=== PATIENT | male | born 1975 | race Caucasian/White ===

== ENCOUNTER 2016-04-25 08:08 | Emergency (ER) | payer SELFPAY ==
[2016-04-25] MEDS ORDERED: ONDANSETRON 4 MG TAB.RAPDIS PO ONE (08:35)
--- NOTE | 2016-04-25 09:21 | ER Document Report ---
[id number] 4d VOMITING,DIARRHEA,BODY PAIN Mode of Arrival: Ambulatory Information source: Patient Notes: 40-year-old male presents with complaints of nausea vomiting diarrhea and back pain. Patient notes 3 children and all had similar viral syndrome, he states he vomited sometimes his back hurts. Patient denies any fevers or chills. TRAVEL OUTSIDE OF THE [place] IN LAST 30 DAYS: No - HPI Onset: Other - 2 day duration Onset/Duration: Persistent Quality of pain: Sharp Severity: Mild Pain Level: 1 Associated symptoms: Body/muscle aches, Diarrhea, Nausea, Vomiting Exacerbated by: Movement Relieved by: Denies Similar symptoms previously: No Recently seen / treated by doctor: No - Related Data Allergies/Adverse Reactions: No Known Allergies Allergy (Verified 04/25/16 08:11) Past Medical History - Social History Smoking Status: Current Every Day Smoker Cigarette use (# per day): Yes Chew tobacco use (# tins/day): No Smoking Education Provided: Yes - Patient counselled regarding cessation for 4 minutes Frequency of alcohol use: None Drug Abuse: None Family History: Arthritis Patient has suicidal ideation: No Patient has homicidal ideation: No Neurological Medical History: Reports: Hx Migraine Renal/ Medical History: Denies: Hx Peritoneal Dialysis GI Medical History: Reports: Hx Gastritis, Hx Gastroesophageal Reflux Disease, Hx Ulcer - Endoscopies, no symptoms of late, Hx Endoscopy Musculoskeltal Medical History: Reports Hx Arthritis Skin Medical History: Denies Hx MRSA Psychiatric Medical History: Reports: Hx Anxiety, Hx Bipolar Disorder, Hx Borderline Personality Disorder, Hx Depression - Immunizations Hx Diphtheria, Pertussis, Tetanus Vaccination: Yes - 6 mo ago Review of Systems - Review of Systems Notes: REVIEW OF SYSTEMS: CONSTITUTIONAL : Denies fever, chills, or sweats. Denies recent illness. EENT: Denies eye, ear, throat, or mouth pain or symptoms. Denies nasal or sinus congestion or discharge. Denies throat, tongue, or mouth swelling or difficulty swallowing. CARDIOVASCULAR: Denies chest pain. Denies palpitations or racing or irregular heart beat. Denies ankle edema. RESPIRATORY: Denies cough, cold, or chest congestion. Denies shortness of breath, difficulty breathing, or wheezing. GASTROINTESTINAL: Admits to nausea vomiting diarrhea GENITOURINARY: Denies difficulty urinating, painful urination, burning, frequency, blood in urine, or discharge. MUSCULOSKELETAL: Admits to back pain SKIN: Denies rash, lesions or sores. HEMATOLOGIC : Denies easy bruising or bleeding. LYMPHATIC: Denies swollen, enlarged glands. NEUROLOGICAL: Denies confusion or altered mental status. Denies passing out or loss of consciousness. Denies dizziness or lightheadedness. Denies headache. Denies weakness or paralysis or loss of use of either side. Denies problems with gait or speech. Denies sensory loss, numbness, or tingling. Denies seizures. PSYCHIATRIC: Denies anxiety or stress. Denies depression, suicidal ideation, or homicidal ideation. ALL OTHER SYSTEMS REVIEWED AND NEGATIVE. Dictation was performed using [employer] voice recognition software PHYSICAL EXAMINATION: GENERAL: Well-appearing, well-nourished and in no acute distress. HEAD: Atraumatic, normocephalic. EYES: Pupils equal round and reactive to light, extraocular movements intact, sclera anicteric, conjunctiva are normal. ENT: Nares patent, oropharynx clear without exudates. Moist mucous membranes. NECK: Normal range of motion, supple without lymphadenopathy LUNGS: Breath sounds clear to auscultation bilaterally and equal. No wheezes rales or rhonchi. HEART: Regular rate and rhythm without murmurs ABDOMEN: Soft, nontender, nondistended abdomen. No guarding, no rebound. No masses appreciated. Musculoskeletal: Right flank pain reproducible on palpation and movement. NEUROLOGICAL: Cranial nerves grossly intact. Normal speech, normal gait. Normal sensory, motor exams PSYCH: Normal mood, normal affect. SKIN: Warm, Dry, normal turgor, no rashes or lesions noted. Physical Exam - Vital signs Vitals: Temp Pulse Resp BP Pulse Ox 97.6 F 94 20 138/78 H 100 04/25/16 08:13 04/25/16 08:13 04/25/16 08:13 04/25/16 08:13 04/25/16 08:13 Course - Re-evaluation Re-evalutation: 04/25/16 15:08 Physical examination notes no significant abnormality, patient's otherwise stable for discharge. Patient will be given pain control and nausea control After performing a Medical Screening Examination, I estimate there is LOW risk for ACUTE APPENDICITIS, BOWEL OBSTRUCTION, ACUTE CHOLECYSTITIS, PERFORATED DIVERTICULITIS, INCARCERATED HERNIA, PANCREATITIS, or PERFORATED ULCER, thus I consider the discharge disposition reasonable. Also, there is no evidence or peritonitis, sepsis, or toxicity. The patient and I have discussed the diagnosis and risks, and we agree with discharging home with close follow-up with the understanding that symptoms and presentations can change. We also discussed returning to the Emergency Department immediately if new or worsening symptoms occur. We have discussed the symptoms which are most concerning (e.g., bloody stool, fever, changing or worsening pain, intractable vomiting - standard verbal up date) that necessitate immediate return. - Vital Signs Vital signs: Temp Pulse Resp BP Pulse Ox 98.6 F 85 16 135/75 H 100 04/25/16 09:29 04/25/16 09:29 04/25/16 09:29 04/25/16 09:29 04/25/16 09:29 Discharge - Discharge Clinical Impression: Nausea vomiting and diarrhea Back pain Qualifiers: Back pain location: low back pain Chronicity: acute Back pain laterality: right Sciatica presence: without sciatica Qualified Code(s): M54.5 - Low back pain Condition: Stable Disposition: HOME, SELF-CARE Instructions: Diarrhea, Nonspecific ([facility]) Prescriptions: Hydrocodone/Acetaminophen [Barnard 5-325 mg Tablet] 1 tab PO Q6 #10 tablet Promethazine HCl [Phenergan 25 mg Tablet] 1 - 2 tab PO Q6H PRN #15 tablet PRN Reason:
[2016-04-25 09:30] VITALS: BP 135/75
== END 2016-04-25 09:30 | disposition home or self-care (01) ==
LOC: ER 08:08
DX: R11.2 Nausea with vomiting, unspecified (principal); R19.7 Diarrhea, unspecified; M54.5 Low back pain; F17.210 Nicotine dependence, cigarettes, uncomplicated; Z71.6 Tobacco abuse counseling
CPT/HCPCS: 99283; S0119

== ENCOUNTER 2017-11-25 01:43 | Emergency (ER) | payer SELFPAY ==
[2017-11-25 01:54] VITALS: BP 136/85
--- NOTE | 2017-11-25 02:17 | ER Document Report ---
ED General - General Mode of Arrival: Ambulatory Information source: Patient TRAVEL OUTSIDE OF THE [place] IN LAST 30 DAYS: No <BRIT CHAN - Last Filed: 11/25/17 02:53> <ZARA MORAN - Last Filed: 11/25/17 02:56> - General Chief Complaint: Hand Pain Stated Complaint: HAND PAIN Time Seen by Provider: 11/25/17 01:56 Notes: Patient is a 42 year old male presenting to the emergency department complaining of right hand pain. Patient states he woke up from his sleep to right hand pain and his right 3rd digit being "locked" in a flexed position. He states he is unable to move the right 3rd digit and it is painful to attempt to move it passively. Patient mentions injuring his right hand approximately 1 year ago after falling off a ladder although he did not seek medical attention at that time. He states he feels his hand has never been able to fully extend since the accident but has never locked up like this before. Patient reports being right hand dominant. 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 (BRIT CHAN) - Related Data Allergies/Adverse Reactions: No Known Allergies Allergy (Verified 04/25/16 08:11) Past Medical History - General Information source: Patient - Social History Smoking Status: Current Every Day Smoker Cigarette use (# per day): Yes Chew tobacco use (# tins/day): No Smoking Education Provided: No Frequency of alcohol use: None Drug Abuse: None Family History: Arthritis Patient has suicidal ideation: No Patient has homicidal ideation: No Neurological Medical History: Reports: Hx Migraine GI Medical History: Reports: Hx Gastritis, Hx Gastroesophageal Reflux Disease, Hx Ulcer - Endoscopies, no symptoms of late, Hx Endoscopy Musculoskeletal Medical History: Reports Hx Arthritis Psychiatric Medical History: Reports: Hx Anxiety, Hx Bipolar Disorder, Hx Borderline Personality Disorder, Hx Depression - Immunizations Hx Diphtheria, Pertussis, Tetanus Vaccination: Yes - 6 mo ago <BRIT CHAN - Last Filed: 11/25/17 02:53> Review of Systems - Review of Systems Constitutional: No symptoms reported EENT: No symptoms reported Cardiovascular: No symptoms reported Respiratory: No symptoms reported Gastrointestinal: No symptoms reported Genitourinary: No symptoms reported Male Genitourinary: No symptoms reported Musculoskeletal: See HPI Skin: No symptoms reported Hematologic/Lymphatic: No symptoms reported Neurological/Psychological: No symptoms reported -: Yes All other systems reviewed and negative <BRIT CHAN - Last Filed: 11/25/17 02:53> Physical Exam <BRIT CHAN - Last Filed: 11/25/17 02:53> <ZARA MORAN - Last Filed: 11/25/17 02:56> - Vital signs Vitals: Temp Pulse BP Pulse Ox 97.9 F 83 136/85 H 99 11/25/17 01:52 11/25/17 01:52 11/25/17 01:52 11/25/17 01:52 - Notes Notes: GENERAL: Alert, apprehensive, interacts well. No acute distress. HEAD: Normocephalic, atraumatic. EYES: Pupils equal, round, and reactive to light. Extraocular movements intact. ENT: Oral mucosa moist, tongue midline. NECK: Full range of motion. Supple. Trachea midline. LUNGS:No respiratory distress EXTREMITIES: Moves all 4 extremities spontaneously. Right 3rd finger is stuck in flexion, pain with manipulation, numbness to the palmar aspect right 3rd finger. Tenderness to palpation to on the palmar aspect just proximal to 3rd MPC joint. No edema, no erythema and no evidence of tenosynovitis. NEUROLOGICAL: Alert and oriented x3. Normal speech. PSYCH: Normal affect, apprehensive. SKIN: Warm, dry, normal turgor. No rashes or lesions noted. (DUSTINVIANNEYABELARDO) Course <BRIT CHAN - Last Filed: 11/25/17 02:53> <ZARA MORAN - Last Filed: 11/25/17 02:56> - Re-evaluation Re-evalutation: 11/25/17 02:18 manipulated right 3rd digit until trigger released, still has numbness to palmar aspect of the right 3rd digit, full range of motion is now noted, does still complain of pain to the right palm along the tendon that controls movement of the third digit, no deformity, suspect trigger finger. Patient placed in splint, asked to follow-up with ortho as an outpatient. (ZARA MORAN) - Vital Signs Vital signs: Temp Pulse Resp BP Pulse Ox 97.9 F 83 136/85 H 99 11/25/17 01:52 11/25/17 01:52 11/25/17 01:52 11/25/17 01:52 Procedures - Immobilization right finger Pre-Proc Neuro Vasc Exam: Normal Immobilizer type: Finger splint (Static) Performed by: PCT Post-Proc Neuro Vasc Exam: Normal, Unchanged from pre-exam Alignment checked and good: Yes - Joint Reduction/Fracture Care right 3rd finger Consent obtained: Yes - verbal Conscious sedation: No Pre-procedure NV exam: Yes - right finger numb Fracture: Other - no fracture Post-procedure NV exam: Yes - right 3rd finger still numb Reduction attempts: 1 Complications: No <ZARA MORAN - Last Filed: 11/25/17 02:56> Discharge <BRIT CHAN - Last Filed: 11/25/17 02:53> <ZARA MORAN - Last Filed: 11/25/17 02:56> - Discharge Clinical Impression: Trigger finger, right middle finger Condition: Stable Disposition: HOME, SELF-CARE Additional Instructions: You appear to have a trigger finger of the right third finger. Please keep the splint on while you are sleeping. If you notice other movements tend to cause your finger to lock up please also wear it then. If you have recurrent episodes of the finger locking up please follow-up with the hand surgeon Dr. Ling. Referrals: IGNACIO LING, [ACTIVE STAFF] - Follow up as needed Scribe Attestation: 11/25/17 02:56 I personally performed the services described in the documentation, reviewed and edited the documentation which was dictated to the scribe in my presence, and it accurately records my words and actions. (ZARA MORAN) Scribe Documentation - Scribe Written by Scribe:: Eber Andersen, 11/25/2017 02:13 acting as scribe for :: Fausto <BRIT CHAN - Last Filed: 11/25/17 02:53>
== END 2017-11-25 02:58 | disposition home or self-care (01) ==
LOC: ER 01:43
PROC: 0RSWXZZ Reposition Right Finger Phalangeal Joint, External Approach (ICD-10-PCS; principal; 2017-11-25)
DX: M65.331 Trigger finger, right middle finger (principal)
CPT/HCPCS: 99283

== ENCOUNTER 2018-01-11 14:32 | Emergency (ER) | payer SELFPAY ==
[2018-01-11] MEDS ORDERED: OXYCODONE-ACETAMINOPHEN 5-325 MG TABLET PO ONE (15:03)
[2018-01-11] MEDS ORDERED: ONDANSETRON 4 MG TAB.RAPDIS PO ONE (15:03)
--- NOTE | 2018-01-11 15:05 | ER Document Report ---
ED Medical Screen (RME) - General Chief Complaint: Finger Injury Stated Complaint: RIGHT MIDDLE FINGER PAIN Time Seen by Provider: 01/11/18 15:00 TRAVEL OUTSIDE OF THE [place] IN LAST 30 DAYS: No - HPI Patient complains to provider of: locked finger Onset: Other - 42-year-old male presents for evaluation of pain and diminished range of motion in his right middle finger after having woken up from sleep with his right hand stuck. This is happened in the past, last time with massaging he was able to have it relaxed. States that it will likely need to be pulled. Is excruciatingly painful to him. - Related Data Allergies/Adverse Reactions: No Known Allergies Allergy (Verified 01/11/18 14:58) Past Medical History - Social History Chew tobacco use (# tins/day): No Frequency of alcohol use: None Drug Abuse: None Neurological Medical History: Reports: Hx Migraine Renal/ Medical History: Denies: Hx Peritoneal Dialysis GI Medical History: Reports: Hx Gastritis, Hx Gastroesophageal Reflux Disease, Hx Ulcer - Endoscopies, no symptoms of late, Hx Endoscopy Musculoskeltal Medical History: Reports Hx Arthritis Skin Medical History: Denies Hx MRSA Psychiatric Medical History: Reports: Hx Anxiety, Hx Bipolar Disorder, Hx Borderline Personality Disorder, Hx Depression - Immunizations Hx Diphtheria, Pertussis, Tetanus Vaccination: Yes - 6 mo ago Physical Exam - Vital signs Vitals: Temp Pulse Resp BP Pulse Ox 97.4 F 60 16 110/75 91 L 01/11/18 14:44 01/11/18 14:44 01/11/18 14:44 01/11/18 14:44 01/11/18 14:44 Course - Re-evaluation Re-evalutation: 01/11/18 15:07 Gentleman with a right third digit which is frozen. Has excruciating pain in it. Has not had x-rays of this in some time. I have greeted and performed a rapid initial assessment of this patient. A comprehensive ED assessment and evaluation of the patient, analysis of test results and completion of the medical decision making process will be conducted by additional ED providers - Vital Signs Vital signs: Temp Pulse Resp BP Pulse Ox 97.4 F 60 16 110/75 91 L 01/11/18 14:44 01/11/18 14:44 01/11/18 14:44 01/11/18 14:44 01/11/18 14:44
--- NOTE | 2018-01-11 15:41 | RADIOLOGY REPORT (SQ) ---
EXAM DESCRIPTION: HAND RIGHT 3 VIEWS COMPLETED DATE/TIME: 01/11/2018 3:21 pm REASON FOR STUDY: finger out of place COMPARISON: None. EXAM PARAMETERS: NUMBER OF VIEWS: Three views. TECHNIQUE: AP, lateral and oblique radiographic images acquired of the right hand. LIMITATIONS: Patient positioning. FINDINGS: MINERALIZATION: Normal. BONES: The 3rd digit proximal and distal interphalangeal joints are flexed on all images. While ther e appears to be an element of medial deviation on the frontal image, the lateral image demonstrates n ormal proximal interphalangeal joint alignment. No fractures are visualized. JOINTS: No effusions. SOFT TISSUES: No soft tissue swelling. No foreign body. OTHER: No other significant finding. IMPRESSION: Flexion deformity of the 3rd digit proximal interphalangeal joint. No fracture or overt dislocation. TECHNICAL DOCUMENTATION: JOB ID: [id number] [employer]- All Rights Reserved Reading location - IP/workstation name: [email or web address]
[2018-01-11] MEDS ORDERED: LIDOCAINE 1% INJ (10 MG/ML) 10 ML MDV INJ ONE (15:50)
--- NOTE | 2018-01-11 16:16 | ER Document Report ---
ED Hand/Wrist Injury - General Chief Complaint: Finger Injury Stated Complaint: RIGHT MIDDLE FINGER PAIN Time Seen by Provider: 01/11/18 15:00 Mode of Arrival: Ambulatory Information source: Patient Notes: Patient is a 42-year-old male comes to the emergency room with a complaint of a locked middle finger. Patient states that about a year or so ago he damaged his extensor tendon on his right middle finger and he has had worked was not completely healed and at times because of inappropriate attention given to it on the original injury it will become a locked position in flexion. This happened a while back and it was able to be massaged and pulled out forcefully which was also painful this time when it occurred last night in his sleep this morning patient is a been attempting to rub it and pull it himself and does have it and it aggravated extensively. Now he will not move at all and its exceptionally painful. Patient is here to have us place it back in position or in the anatomical position. TRAVEL OUTSIDE OF THE [place] IN LAST 30 DAYS: No - HPI Injury to: Middle finger Onset: Other - Last night Where: Home Timing: Constant, Worse Quality of pain: Pressure, Sharp, Throbbing Severity: Severe Pain Level: 5 Context: Other - Unknown - Related Data Allergies/Adverse Reactions: No Known Allergies Allergy (Verified 01/11/18 14:58) Past Medical History - General Information source: Patient - Social History Smoking Status: Current Every Day Smoker Cigarette use (# per day): Yes Chew tobacco use (# tins/day): No Smoking Education Provided: Yes Frequency of alcohol use: None Drug Abuse: None Family History: Reviewed & Not Pertinent, Arthritis Patient has suicidal ideation: No Patient has homicidal ideation: No Neurological Medical History: Reports: Hx Migraine Renal/ Medical History: Denies: Hx Peritoneal Dialysis GI Medical History: Reports: Hx Gastritis, Hx Gastroesophageal Reflux Disease, Hx Ulcer - Endoscopies, no symptoms of late, Hx Endoscopy Musculoskeletal Medical History: Reports Hx Arthritis Skin Medical History: Denies Hx MRSA Psychiatric Medical History: Reports: Hx Anxiety, Hx Bipolar Disorder, Hx Borderline Personality Disorder, Hx Depression - Immunizations Hx Diphtheria, Pertussis, Tetanus Vaccination: Yes - 6 mo ago Review of Systems - Review of Systems Constitutional: No symptoms reported EENT: No symptoms reported Cardiovascular: No symptoms reported Respiratory: No symptoms reported Gastrointestinal: No symptoms reported Genitourinary: No symptoms reported Male Genitourinary: No symptoms reported Musculoskeletal: No symptoms reported, Joint pain, Joint swelling Skin: No symptoms reported Hematologic/Lymphatic: No symptoms reported Neurological/Psychological: No symptoms reported -: Yes All other systems reviewed and negative Physical Exam - Vital signs Vitals: Temp Pulse Resp BP Pulse Ox 97.4 F 60 16 110/75 91 L 01/11/18 14:44 01/11/18 14:44 01/11/18 14:44 01/11/18 14:44 01/11/18 14:44 Interpretation: Normal - Notes Notes: Patient is a well-nourished well-developed 42-year-old male who is in no distress but is in moderate amount of obvious pain and discomfort. - General General appearance: Alert In distress: None - HEENT Head: Normocephalic, Atraumatic, Open wounds - Respiratory Respiratory status: No respiratory distress Chest status: Nontender Breath sounds: Normal. No: Rales, Rhonchi, Stridor, Wheezing Chest palpation: Normal - Cardiovascular Rhythm: Regular Heart sounds: Normal auscultation Murmur: No - Extremities General upper extremity: Tender, Normal color, Normal temperature. No: Normal ROM, Normal strength General lower extremity: Normal inspection, Nontender, Normal ROM, Normal strength - Neurological Neuro grossly intact: Yes Cognition: Normal Orientation: AAOx4 Patti Coma Scale Eye Opening: Spontaneous [place] Coma Scale Verbal: Oriented Patti Coma Scale Motor: Obeys Commands [place] Coma Scale Total: 15 Speech: Normal Course - Re-evaluation Re-evalutation: 01/11/18 16:16 After the digital block patient was able to relax enough to where we were able to pull his finger back out. He felt better although stated that the pain is still excruciating. Give a little pain medication for when he goes home leave him in a splint and he can follow-up with orthopedic. 01/11/18 16:16 Procedure note I used Betadine swabs to clean the area on the palm of the hand at the base of the right middle finger I then used a 10 mL syringe with a 22- gauge 1 inch needle and injected about 3-1/2 mL's total into the area alternating the right side to the left side of the finger to get along the nerve. After injection I waited approximately 3-5 minutes and to allow to work patient states he could feel pressure but he did not feel sharp pain at least in the finger but still had pain in the palm of the hand from all the attempts were made of pulling this finger out. We were able to straighten it to natural anatomic position which gave him some relief. He tolerated this procedure without any complications. He was also splinted with an aluminum finger splint in anatomical curve for the finger and I checked it and it was in good placement with good cap refill in the nail bed after placement. - Vital Signs Vital signs: Temp Pulse Resp BP Pulse Ox 97.4 F 60 16 110/75 91 L 01/11/18 14:44 01/11/18 14:44 01/11/18 14:44 01/11/18 14:44 01/11/18 14:44 Discharge - Discharge Clinical Impression: Trigger finger Qualifiers: Trigger finger location: middle finger Laterality: right Qualified Code(s): M65.331 - Trigger finger, right middle finger Condition: Stable Disposition: HOME, SELF-CARE Instructions: Finger Dislocation ([facility]) Additional Instructions: You presenting problem is not that of a dislocated finger however the symptoms are similar and the recovery is similar. But we have no handout on trigger finger. At this point you know about the symptoms and you know about the pain and discomfort they can come if it gets stuck so the idea is to let it rest as much as possible keep it in the anatomical curve and if you want to know what that looks like just lay down and relax your opposite hand and see with the fingers position looks like. If this continues to happen you will need to see an orthopedist to have it fixed its that you relatively simple fix from my understanding so it may be something he should consider. I will give you the name of the orthopedist gas operations analyst today he may contact his office to see if he can accommodate you. I would ice it down 3-4 times a day for a few minutes each time you cannot ice the finger down for long periods of time because of the microvascular blood supply that is there. You can freeze your finger in other words. Should you have any concerns or problems return to ER for a recheck. Prescriptions: Oxycodone HCl/Acetaminophen [Percocet 5-325 mg Tablet] 1 - 2 tab PO Q4H PRN #10 tablet PRN Reason:
[2018-01-11 17:09] VITALS: BP 126/87
== END 2018-01-11 16:54 | disposition home or self-care (01) ==
LOC: ER 14:32
PROC: 3E0T3BZ Introduction of Anesthetic Agent into Peripheral Nerves and Plexi, Percutaneous Approach (ICD-10-PCS; principal; 2018-01-11)
DX: M65.331 Trigger finger, right middle finger (principal); M79.644 Pain in right finger(s); X58.XXXA Exposure to other specified factors, initial encounter; F17.210 Nicotine dependence, cigarettes, uncomplicated
CPT/HCPCS: 99283; 73130; 64455; S0119

== ENCOUNTER 2018-02-21 16:45 | Emergency (ER) | payer OTHER ==
[2018-02-21] MEDS ORDERED: LIDOCAINE 1% INJ-PF (10 MG/ML) 30 ML SDV INJ ONE (17:48)
[2018-02-21] MEDS ORDERED: OXYCODONE-ACETAMINOPHEN 5-325 MG TABLET PO ONE (17:48)
--- NOTE | 2018-02-21 18:31 | ER Document Report ---
HPI - HPI Time Seen by Provider: 02/21/18 17:24 Pain Level: 5 Notes: Patient presents with chief complaint of right middle finger pain as it is locked in a trigger position. He states this is happened to him multiple times before, sometimes he is able to unlock it himself. Denies any other complaints. - CONSTITUTIONAL Constitutional: DENIES: Fever, Chills - MUSCULOSKELETAL Musculoskeletal: REPORTS: Extremity pain - R middle finger Past Medical History - General Information source: Patient - Social History Smoking Status: Current Every Day Smoker Family History: Reviewed & Not Pertinent, Arthritis Patient has suicidal ideation: No Patient has homicidal ideation: No Neurological Medical History: Reports: Hx Migraine Renal/ Medical History: Denies: Hx Peritoneal Dialysis GI Medical History: Reports: Hx Gastritis, Hx Gastroesophageal Reflux Disease, Hx Ulcer - Endoscopies, no symptoms of late, Hx Endoscopy Musculoskeletal Medical History: Reports Hx Arthritis Skin Medical History: Denies Hx MRSA Psychiatric Medical History: Reports: Hx Anxiety, Hx Bipolar Disorder, Hx Borderline Personality Disorder, Hx Depression - Immunizations Hx Diphtheria, Pertussis, Tetanus Vaccination: Yes - 6 mo ago Vertical Provider Document - CONSTITUTIONAL Notes: PHYSICAL EXAMINATION: GENERAL: Well-appearing, well-nourished and in no acute distress. HEAD: Atraumatic, normocephalic. EYES: Pupils equal round extraocular movements intact, conjunctiva are normal. ENT: Nares patent NECK: Normal range of motion LUNGS: No respiratory distress Musculoskeletal: Normal range of motion, trigger finger noted to right third digit. Cap refill less than 3 seconds, normal sensation distal to area of concern. NEUROLOGICAL: Normal speech, normal gait. PSYCH: Normal mood, normal affect. SKIN: Warm, Dry, normal turgor, no rashes or lesions noted. - INFECTION CONTROL TRAVEL OUTSIDE OF THE [place] IN LAST 30 DAYS: No Course - Re-evaluation Re-evalutation: Trigger finger reduced, see procedure note. - Vital Signs Vital signs: Temp Pulse Resp BP Pulse Ox 98.3 F 89 18 110/83 97 02/21/18 16:57 02/21/18 16:57 02/21/18 16:57 02/21/18 16:57 02/21/18 16:57 Procedures - Joint Reduction/Fracture Care right digit Notes: Digital block was performed to the third digit on right hand. Trigger finger was reduced without complication. Splint placed. Discharge - Discharge Clinical Impression: Trigger finger, right middle finger Condition: Stable Disposition: HOME, SELF-CARE Additional Instructions: Please keep the splint in place for at least 24 hours. Take ibuprofen 600 mg every 6 hours for pain. You may use the hydrocodone for severe pain. Prescriptions: Hydrocodone Bit/Acetaminophen [Hydrocodon-Acetaminophen 5-325] 1 each PO Q4H #8 tablet Referrals: ATIF MARSHALL PA-C [Primary Care Provider] - Follow up as needed
[2018-02-21 18:36] VITALS: BP 124/70
== END 2018-02-21 18:36 | disposition home or self-care (01) ==
LOC: ER 16:45
DX: M65.331 Trigger finger, right middle finger (principal); M79.644 Pain in right finger(s); F17.200 Nicotine dependence, unspecified, uncomplicated
CPT/HCPCS: 99283; 64450; J3490

== ENCOUNTER 2018-08-11 10:36 | Emergency (ER) | payer OTHER ==
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
[2018-08-11 11:56] VITALS: BP 120/68
== END 2018-08-11 11:52 | disposition home or self-care (01) ==
LOC: ER 10:36
DX: K46.9 Unspecified abdominal hernia without obstruction or gangrene (principal); R10.30 Lower abdominal pain, unspecified
CPT/HCPCS: 99283

== ENCOUNTER 2019-09-12 07:52 | Emergency (ER) | payer OTHER ==
[2019-09-12] MEDS ORDERED: DIPHENHYDRAMINE HCL 50 MG/ML VIAL IV ONE ×2 (08:40→13:05)
[2019-09-12] MEDS ORDERED: METOCLOPRAMIDE HCL INJ/PF 10 MG/2 ML SDV IV ONE (08:40)
--- NOTE | 2019-09-12 08:41 | ER Document Report ---
ED Psych Disorder / Suicide - General Chief Complaint: Psych Problem Stated Complaint: PSYCH EVAL Time Seen by Provider: 09/12/19 08:20 Primary Care Provider: ATIF MARSHALL PA-C [Primary Care Provider] - Follow up as needed TRAVEL OUTSIDE OF THE [place]. IN LAST 30 DAYS: No - Related Data Allergies/Adverse Reactions: No Known Allergies Allergy (Verified 09/23/18 12:37) Home Medications: aleve Past Medical History - Social History Smoking Status: Current Every Day Smoker Frequency of alcohol use: None Drug Abuse: Heroin, Marijuana, Prescription drugs Family History: Reviewed & Not Pertinent, Arthritis Patient has homicidal ideation: No Neurological Medical History: Reports: Hx Migraine Renal/ Medical History: Denies: Hx Peritoneal Dialysis GI Medical History: Reports: Hx Gastritis, Hx Gastroesophageal Reflux Disease, Hx Ulcer - Endoscopies, no symptoms of late, Hx Endoscopy Musculoskeletal Medical History: Reports Hx Arthritis Skin Medical History: Denies Hx MRSA Psychiatric Medical History: Reports: Hx Anxiety, Hx Bipolar Disorder, Hx Borderline Personality Disorder, Hx Depression - Immunizations Hx Diphtheria, Pertussis, Tetanus Vaccination: Yes - 6 mo ago Physical Exam - Vital signs Vitals: Temp Pulse Resp BP Pulse Ox 99.0 F 100 18 129/95 H 97 09/12/19 07:57 09/12/19 07:57 09/12/19 07:57 09/12/19 07:57 09/12/19 07:57 Course - Vital Signs Vital signs: Temp Pulse Resp BP Pulse Ox 99.0 F 100 18 129/95 H 97 09/12/19 08:21 09/12/19 07:57 09/12/19 07:57 09/12/19 07:57 09/12/19 07:57 Discharge - Discharge Referrals: ATIF MARSHALL PA-C [Primary Care Provider] - Follow up as needed
--- NOTE | 2019-09-12 08:43 | ER Document Report ---
ED Psych Disorder / Suicide - General Chief Complaint: Psych Problem Stated Complaint: PSYCH EVAL Time Seen by Provider: 09/12/19 08:20 Primary Care Provider: ATIF MARSHALL PA-C [Primary Care Provider] - Follow up as needed Notes: Patient is a 44-year-old male who presents to the emergency department with a chief complaint of suicidal ideation that he had yesterday. Patient states that he felt like he wanted to kill himself. He also states that he felt this way after he snorted some heroin. Patient states that he went to [facility] for methadone detox and patient states that he felt he was going through withdrawals. Patient states that he has had nausea, vomiting, and has not slept. Patient does not take any medications. States that he has a history of GERD, chronic back pain, and trigger finger. TRAVEL OUTSIDE OF THE [place] IN LAST 30 DAYS: No - Related Data Allergies/Adverse Reactions: No Known Allergies Allergy (Verified 09/23/18 12:37) Home Medications: aleve Past Medical History - Social History Smoking Status: Current Every Day Smoker Frequency of alcohol use: None Drug Abuse: Heroin, Marijuana, Prescription drugs Family History: Reviewed & Not Pertinent, Arthritis Patient has homicidal ideation: No Neurological Medical History: Reports: Hx Migraine Renal/ Medical History: Denies: Hx Peritoneal Dialysis GI Medical History: Reports: Hx Gastritis, Hx Gastroesophageal Reflux Disease, Hx Ulcer - Endoscopies, no symptoms of late, Hx Endoscopy Musculoskeletal Medical History: Reports Hx Arthritis Skin Medical History: Denies Hx MRSA Psychiatric Medical History: Reports: Hx Anxiety, Hx Bipolar Disorder, Hx Borderline Personality Disorder, Hx Depression - Immunizations Hx Diphtheria, Pertussis, Tetanus Vaccination: Yes - 6 mo ago Review of Systems - Review of Systems Notes: REVIEW OF SYSTEMS: CONSTITUTIONAL : Denies recent illness. Denies recent unintentional weight loss. Denies fever, chills, or sweats. EENT: Denies eye, ear, throat, or mouth pain, discharge, or symptoms. Denies nasal or sinus congestion. CARDIOVASCULAR: Denies chest pain. RESPIRATORY: Denies shortness of breath, cough, congestion, difficulty breathing, or wheezing. GASTROINTESTINAL: See HPI. GENITOURINARY: Denies difficulty urinating, burning, blood in urine, urgency or frequency. MUSCULOSKELETAL: Denies neck and back pain. Denies joint pain or swelling. SKIN: Denies rash, itchiness, or lesions HEMATOLOGIC : Denies easy bruising or bleeding. LYMPHATIC: Denies swollen, painful, enlarged glands. NEUROLOGICAL: Denies no numbness or tingling denies weakness. Denies headache. Denies altered mental status. Denies alteration in speech. PSYCHIATRIC: See HPI. All other systems reviewed and negative. Physical Exam - Vital signs Vitals: Temp Pulse Resp BP Pulse Ox 99.0 F 100 18 129/95 H 97 09/12/19 07:57 09/12/19 07:57 09/12/19 07:57 09/12/19 07:57 09/12/19 07:57 - Notes Notes: PHYSICAL EXAMINATION: GENERAL: Appears well, healthy, well-nourished, no acute distress. HEAD: Normocephalic, atraumatic. EYES: PERRL, conjunctiva normal, all extraocular movements intact, sclera nonicteric ENT: Moist mucous membranes. NECK: Supple, no noticeable swelling, redness, rash. Normal range of motion. LUNGS: Equal breath sounds bilaterally and clear to auscultation. No wheezes rales or rhonchi. CARDIOVASCULAR: S1-S2, regular rate, regular rhythm. Radial pulses 2+, normal. ABDOMEN: Normoactive bowel sounds. Soft, nontender, no guarding, no rebound tenderness, and no masses palpated. EXTREMITIES: Normal strength and range of motion, no pitting or edema. No cyanosis. NEUROLOGICAL: Moves all extremities upon command. Strength 5/5 in all extremities. PSYCH: Appears mildly anxious. SKIN: Warm, dry. No rash, lesions, ulcerations noted. Normal skin turgor. Course - Re-evaluation Re-evalutation: 09/12/19 13:04 CT of the abdomen pelvis is unremarkable. No stones noted. At this time, the patient is stable for mental health evaluation. He still feels he is having withdrawal symptoms. Give him another dose of Benadryl. 09/12/19 15:22 Mental health has evaluated the patient. They recommend the patient start on Haldol 5 mg p.o. twice daily, Cogentin 1 mg daily, and clonidine 0.1 mg daily. Spoke with the patient he is in agreement with this plan. Patient states that he slept well after receiving Benadryl. Patient will also follow-up with [facility] if needed. Follow-up precautions were given. Verbal discharge instructions were given to the patient. They verbalized understanding. They are stable for discharge. - Vital Signs Vital signs: Temp Pulse Resp BP Pulse Ox 98.3 F 97 16 132/85 H 95 09/12/19 15:40 09/12/19 15:40 09/12/19 15:40 09/12/19 15:40 09/12/19 15:40 - Laboratory Result Diagrams: 09/12/19 09:10 09/12/19 09:10 Laboratory results interpreted by me: 09/12/19 09/12/19 09/12/19 09:10 09:10 10:10 WBC 14.4 H RDW 14.8 H Absolute Neuts (auto) 11.6 H Seg Neutrophils % 80.4 H Sodium 135.8 L BUN 22 H Glucose 118 H Urine Ketones 20 H Urine Blood MODERATE H Salicylates < 1.0 L Acetaminophen < 10 L Discharge - Discharge Clinical Impression: Suicidal ideation, Methadone withdrawal Chronic pain Qualifiers: Chronic pain type: other chronic pain Qualified Code(s): G89.29 - Other chronic pain Condition: Stable Disposition: HOME, SELF-CARE Additional Instructions: You were seen today in the ED for methadone withdrawals. You were evaluated by mental health and medical. Please take the medications below as prescribed. Follow-up with [place] [facility] if needed. Prescriptions: Clonidine HCl [Catapres 0.1 mg Tablet] 0.1 mg PO DAILY #5 tablet Benztropine Mesylate [Cogentin 1 mg Tablet] 1 mg PO DAILY #5 tablet Haloperidol [Haldol 5 mg Tablet] 5 mg PO BID #10 tablet Forms: Return to Work Referrals: ATIF MARSHALL PA-C [Primary Care Provider] - Follow up as needed
[2019-09-12] MEDS ORDERED: NORMAL SALINE 1000 ML 1,000 ML IV ONE (08:44)
[2019-09-12 09:33] LABS: ABSOLUTE BASOPHILS # (AUTO) 0.1 10^3/uL (0.0-0.2); ABSOLUTE MONOCYTES (AUTO) 0.7 10^3/uL (0.1-1.4); ABSOLUTE NEUT (AUTO) 11.6 10^3/uL (1.7-8.2); BASOPHILS % (AUTO) 0.5 % (0-2); EOSINOPHILS % (AUTO) 0.1 % (0-6); HEMATOCRIT 44.4 % (37.9-51.0); LYMPHOCYTES % (AUTO) 13.9 % (13-45); MEAN CORPUSCULAR HEMOGLOBIN 29.8 pg (27.0-33.4); MEAN CORPUSCULAR HGB CONC 33.8 g/dL (32.0-36.0); MEAN CORPUSCULAR VOLUME 88 fl (80-97); MONOCYTES % (AUTO) 5.1 % (3-13); PLATELET COUNT 274 10^3/uL (150-450); RED BLOOD COUNT 5.03 10^6/uL (4.35-5.55); RED CELL DISTRIBUTION WIDTH 14.8 % (11.5-14.0); SEGMENTED NEUTROPHILS % (AUTO) 80.4 % (42-78); TOTAL CELLS COUNTED % (AUTO) 100 %; WHITE BLOOD COUNT 14.4 10^3/uL (4.0-10.5)
[2019-09-12 09:48] LABS: ALBUMIN 4.9 g/dL (3.5-5.0); ALKALINE PHOSPHATASE 99 U/L (38-126); ANION GAP 9 (5-19); ASPARTATE AMINO TRANSFERASE 22 U/L (17-59); BLOOD UREA NITROGEN 22 mg/dL (7-20); CALCIUM 9.9 mg/dL (8.4-10.2); CARBON DIOXIDE 25 mmol/L (22-30); CHLORIDE 102 mmol/L (98-107); GLUCOSE 118 mg/dL (75-110); TOTAL PROTEIN 7.7 g/dL (6.3-8.2)
[2019-09-12 09:49] LABS: ACETAMINOPHEN < 10 ug/mL (10-30); ALCOHOL < 10 mg/dL (NONE DETECTED); SALICYLATE < 1.0 mg/dL (2.0-20.0)
--- NOTE | 2019-09-12 10:04 | EKG REPORT ---
SEVERITY:- NORMAL ECG - SINUS RHYTHM : Confirmed by: Beck Best MD 12-Sep-2019 10:03:41
[2019-09-12 10:42] LABS: APPEARANCE,URINE CLEAR; BILIRUBIN,URINE NEGATIVE (NEGATIVE); COLOR,URINE YELLOW; GLUCOSE, URINE NEGATIVE (NEGATIVE); KETONES,URINE 20 mg/dL (NEGATIVE); LEUKOCYTE ESTERASE,URINE NEGATIVE (NEGATIVE); NITRITE,URINE NEGATIVE (NEGATIVE); PROTEIN,URINE NEGATIVE (NEGATIVE); URINE SPECIFIC GRAVITY 1.013; UROBILINOGEN,URINE NEGATIVE mg/dL (<2.0)
[2019-09-12 10:48] LABS: URINE AMPHETAMINES SCREEN NEGATIVE; URINE BARBITURATES SCREEN NEGATIVE; URINE BENZODIAZEPINES SCREEN NEGATIVE; URINE COCAINE SCREEN NEGATIVE; URINE PHENCYCLIDINE SCREEN NEGATIVE
[2019-09-12 10:50] LABS: URINE MARIJUANA (THC) SCREEN UNCONFIRMED POSITIVE; URINE METHADONE SCREEN UNCONFIRMED POSITIVE
--- NOTE | 2019-09-12 11:38 | RADIOLOGY REPORT (SQ) ---
EXAM DESCRIPTION: CT ABD/PELVIS NO ORAL OR IV IMAGES COMPLETED DATE/TIME: 09/12/2019 11:19 am REASON FOR STUDY: back pain; hematuria COMPARISON: None. TECHNIQUE: CT scan of the abdomen and pelvis performed without intravenous or oral contrast. Images reviewed with lung, soft tissue, and bone windows. Reconstructed coronal and sagittal MPR images revi ewed. All images stored on PACS. All CT scanners at this facility use dose modulation, iterative reconstruction, and/or weight based d osing when appropriate to reduce radiation dose to as low as reasonably achievable (ALARA). [facility]: Dose Right [facility]: CareDose [facility]: Dose Right [facility]: Teradose 4D [facility]: Smart RAREFORM RADIATION DOSE: CT Rad equipment meets quality standard of care and radiation dose reduction techniq ues were employed. CTDIvol: 8.3 mGy. DLP: 437 mGy-cm.mGy. LIMITATIONS: None. FINDINGS: LOWER CHEST: No significant findings. No nodules or infiltrates. NON-CONTRASTED LIVER, SPLEEN, ADRENALS: Evaluation limited by lack of IV contrast. No identified sign ificant masses. PANCREAS: No masses. No peripancreatic inflammatory changes. GALLBLADDER: No identified stones by CT criteria. No inflammatory changes to suggest cholecystitis. RIGHT KIDNEY AND URETER: No suspicious masses. Assessment limited by lack of IV contrast. No signif icant calcifications. No hydronephrosis or hydroureter. LEFT KIDNEY AND URETER: No suspicious masses. Assessment limited by lack of IV contrast. No signifi cant calcifications. No hydronephrosis or hydroureter. AORTA AND RETROPERITONEUM: No aneurysm. No retroperitoneal masses or adenopathy. BOWEL AND PERITONEAL CAVITY: No obvious masses or inflammatory changes. No free fluid. APPENDIX: Normal. PELVIS, BLADDER, AND ABDOMINAL WALL:No abnormal masses. No free fluid. Bladder normal. BONES: No significant findings. OTHER: No other significant finding. IMPRESSION: NO SIGNIFICANT OR ACUTE PROCESS IN THE ABDOMEN OR PELVIS. COMMENT: Quality ID # [id number]: Final reports with documentation of one or more dose reduction techniques (e.g., Automated exposure control, adjustment of the mA and/or kV according to patient size, use of iterative reconstruction technique) TECHNICAL DOCUMENTATION: JOB ID: [id number] 2010 [employer]- All Rights Reserved Reading location - IP/workstation name: [email or web address]
[2019-09-12] MEDS ORDERED: ACETAMINOPHEN 325 MG TABLET PO ONE (13:05)
[2019-09-12 15:41] VITALS: BP 132/85
--- NOTE | 2019-09-14 20:54 | PSYCHOLOGICAL NOTE ---
Psych Note - Psych Note Date seen by psych provider: 09/12/19 Time seen by psych provider: 11:19 - [phone]. Spoke to daughter at 1523. Psych Note: Presenting Problem: Patient is a 44 year old male who presented to the [facility] ED this morning via POV/daughter for methadone Withdrawal. He informed medical staff he has been on 160MG a day for the past year, was kicked out of [facility] ([facility]) due to aggression toward counselor, they detoxed him for 10 days and the last Methadone he had was (13MG). He told medical staff he tried to go to [facility] but they wouldn't take him. He said he had wanted to detox of Methadone but now feels like he can't do it. He reported to medical he had been vomiting yellow bile since Friday, was unable to keep down food and water for 2 days and has chronic back pain. He told medical staff he didn't want to lose his life, job or children. He denied SI/HI when he arrived and stated yesterday at 11AM he had an overdose attempt on heroin, immediately started vomiting and was not seen for that. Patient identified "I'd like to stay away from the Methadone but I feel like shit, I feel so sick." He stated medical told him he has blood in his urine and with the back pain he reported he could have a kidney stone. He reported the same story about being kicked out of [facility] but mentioned just before they kicked him out they had increased his Methadone dose. He identified he got started on pain medication via [facility] 7 years ago for his back. He denied being on other medications. Patient admitted to previous mental health hospitalizations and mentioned [facility], [place] and twice in [facility] (where he is originally from, for behavioral issues). He stated it was all like 15 plus years ago or longer. Patient was alert and oriented to self, person, place, time and situation. Mood was depressed with congruent affect. He denied current suicidal and homicidal ideation, admitted to medical last evening about trying to OD on heroin the morning before but then stated he doesn't want to lose his life/job/children. Patient did not appear to be responding to internal stimuli as evidenced by fair eye contact and answering questions appropriately when addressed. Thought processes were linear and organized. Conversational speech was within normal limits for rate, tone and prosody. Intellectual abilities are estimated to be average. Insight, judgment and impulse control were fair as evidenced by being engaged and discussing his desire to not be on Methadone but concern for what he's feeling currently. Collateral: At 1523 patient's daughter Debra Dick ([phone]) called to check in on her father. She stated she brought him to the ED and would pick him up. Clinical Presentation: Methadone Withdrawal Medication recommendations made by the psychiatric medication provider Dr. Devin MD., includes: 5 day prescription for the following for Withdrawal symptoms: Haldol 5MG twice a day for vomiting Cogentin 1MG daily to curb tremor side effects often associated with antispychotic medications Clonidine 0.1MG daily to address high blood pressure/calming effect Impression/Plan: Patient is cleared from acute psychiatric services. He denied current suicidal and homicidal ideation. No observed psychosis given his ability to carry on linear dialogue conversation. He stated he wants to stay away from the Methadone but doesn't know if he can given what he's experiencing. Psychoeducated that tome of the withdrawal is just going to happen but he was being provided a 5 day script for medications to assist. He was informed if he was going to use anything he should not take the prescriptions provided. Provided patient with the substance abuse resource sheet which highlighted both [facility] numbers who could assist with voluntary inpatient detox and other treatment, highlighted [place] [facility] ([facility]) (he said he works that way, has [employer]), provided the pamphlet for [facility] with direct access to mobile oracle r12 developer. Provided the outpatient mental health resource sheet which highlighted both [facility] numbers for crisis/talk therapy/linkage to other services and supports, listed contact information for [facility] in [place] for possible Methadone program, and listed [facility] as a Methadone Clinic. Daughter provided transportation from ED to home. Consulted with Dr. Hooper regarding the management and care of patient. ED Physician in agreement with recommendations.
== END 2019-09-12 15:57 | disposition home or self-care (01) ==
LOC: ER 07:52
DX: R45.851 Suicidal ideations (principal); F11.23 Opioid dependence with withdrawal; T40.2X5A Adverse effect of other opioids, initial encounter; G89.29 Other chronic pain; R11.2 Nausea with vomiting, unspecified; F17.200 Nicotine dependence, unspecified, uncomplicated
CPT/HCPCS: 93005; 96376; 99285; 96361; 96374; 96375; 36415; 80307 ×4; 83690; 85025; 80053; 81001; 74176; 93010; J1200; J2765; J7030

== ENCOUNTER 2019-11-28 14:14 | Inpatient (IN) | payer SELFPAY ==
[~2019-11-28 14:14] MED LIST: LIDOCAINE 2% INJ-PF (20 MG/ML) 2 ML AMPUL ONE; METOCLOPRAMIDE HCL INJ/PF 10 MG/2 ML SDV ONE; ONDANSETRON HCL INJ/PF 4 MG/2 ML SDV ONE; SUCCINYLCHOLINE CHLORIDE INJ 200 MG/10 ML VIAL ONE
--- NOTE | 2019-11-28 14:34 | ER Document Report ---
ED Medical Screen (RME) - General Chief Complaint: Abscess Stated Complaint: SKIN SORE/UPPER RIGHT THIGH Time Seen by Provider: 11/28/19 14:21 Primary Care Provider: ATIF MARSHALL PA-C [Primary Care Provider] - Follow up as needed Mode of Arrival: Ambulatory Information source: Patient Notes: 44-year-old male presented to ED for 5 days of swelling pain redness and warmth to the right inner thigh. He states he does work outside sweating in the sun. He states it is become more red and swollen each day. He does have a history of reflux ulcers and endoscopies. He states he does smoke 2 packs a day. He states he also smokes marijuana. He states he did recently get some sawdust in his ear and take a nail and take this saw this area on his left eye and ended up with a popping and a lot of drainage and now he cannot hear out of the left ear. I have greeted and performed a rapid initial assessment of this patient. A comprehensive ED assessment and evaluation of the patient, analysis of test results and completion of medical decision making process will be conducted by an additional ED providers. TRAVEL OUTSIDE OF THE [place] IN LAST 30 DAYS: No - Related Data Allergies/Adverse Reactions: No Known Allergies Allergy (Verified 11/28/19 14:20) Past Medical History - Social History Drug Abuse: Marijuana Neurological Medical History: Reports: Hx Migraine Renal/ Medical History: Denies: Hx Peritoneal Dialysis GI Medical History: Reports: Hx Gastritis, Hx Gastroesophageal Reflux Disease, Hx Ulcer - Endoscopies, no symptoms of late, Hx Endoscopy Musculoskeltal Medical History: Reports Hx Arthritis Skin Medical History: Denies Hx MRSA Psychiatric Medical History: Reports: Hx Anxiety, Hx Bipolar Disorder, Hx Borderline Personality Disorder, Hx Depression - Immunizations Hx Diphtheria, Pertussis, Tetanus Vaccination: Yes - 6 mo ago Physical Exam - Vital signs Vitals: Temp Pulse Resp BP Pulse Ox 98.6 F 103 H 18 149/83 H 98 11/28/19 14:21 11/28/19 14:21 11/28/19 14:21 11/28/19 14:21 11/28/19 14:21 Course - Vital Signs Vital signs: Temp Pulse Resp BP Pulse Ox 98.6 F 103 H 18 149/83 H 98 11/28/19 14:21 11/28/19 14:21 11/28/19 14:21 11/28/19 14:21 11/28/19 14:21 Doctor's Discharge - Discharge Referrals: ATIF MARSHALL PA-C [Primary Care Provider] - Follow up as needed
[2019-11-28 14:50] LABS: ABSOLUTE EOSINOPHILS # (AUTO) 0.3 10^3/uL (0.0-0.6); ABSOLUTE LYMPHOCYTES (AUTO) 1.9 10^3/uL (0.5-4.7); ABSOLUTE MONOCYTES (AUTO) 1.2 10^3/uL (0.1-1.4); BASOPHILS % (AUTO) 0.2 % (0-2); EOSINOPHILS % (AUTO) 1.9 % (0-6); HEMATOCRIT 39.6 % (37.9-51.0); HEMOGLOBIN 13.6 g/dL (13.5-17.0); LYMPHOCYTES % (AUTO) 12.1 % (13-45); MEAN CORPUSCULAR HEMOGLOBIN 30.7 pg (27.0-33.4); MEAN CORPUSCULAR HGB CONC 34.3 g/dL (32.0-36.0); MEAN CORPUSCULAR VOLUME 90 fl (80-97); MONOCYTES % (AUTO) 7.7 % (3-13); PLATELET COUNT 268 10^3/uL (150-450); RED BLOOD COUNT 4.42 10^6/uL (4.35-5.55); RED CELL DISTRIBUTION WIDTH 12.9 % (11.5-14.0); SEGMENTED NEUTROPHILS % (AUTO) 78.1 % (42-78); TOTAL CELLS COUNTED % (AUTO) 100 %; WHITE BLOOD COUNT 15.4 10^3/uL (4.0-10.5)
[2019-11-28 15:09] LABS: ALBUMIN 3.9 g/dL (3.5-5.0); ALKALINE PHOSPHATASE 117 U/L (38-126); ANION GAP 10 (5-19); ASPARTATE AMINO TRANSFERASE 16 U/L (17-59); BILIRUBIN,DIRECT 0.4 mg/dL (0.0-0.4); BILIRUBIN,TOTAL 0.4 mg/dL (0.2-1.3); BLOOD UREA NITROGEN 16 mg/dL (7-20); CARBON DIOXIDE 29 mmol/L (22-30); CHLORIDE 101 mmol/L (98-107); GLUCOSE 126 mg/dL (75-110); POTASSIUM 3.5 mmol/L (3.6-5.0); TOTAL PROTEIN 6.7 g/dL (6.3-8.2)
--- NOTE | 2019-11-28 15:28 | RADIOLOGY REPORT (SQ) ---
EXAM DESCRIPTION: U/S EXTREMITY NONVASCULAR LTD IMAGES COMPLETED DATE/TIME: 11/28/2019 3:15 pm REASON FOR STUDY: right inner thigh cellulitis Swelling, redness, pain, warmth to the right inner thigh for 5 days. Patient drained fluid from the area. COMPARISON: None. TECHNIQUE: Grayscale images acquired of the localized site of clinical concern and recorded on PACS. Additional selected color Doppler images recorded. SITE OF CONCERN: Right inner thigh LIMITATIONS: None. FINDINGS: Ultrasound scanning was performed at the patient's area of concern at the right inner thig h. There is diffuse soft tissue edema. There is 0.7 x 0.3 x 1.4 cm fluid collection at the superficial soft tissues extending to the skin surface. No significant vascularity was noted on Doppler images. IMPRESSION: Soft tissue edema at the right inner thigh. 0.7 x 0.3 x 1.4 cm fluid collection at the superficial soft tissues extending to the skin surface, superimposed acute infection/ abscess cannot be excluded. TECHNICAL DOCUMENTATION: JOB ID: [id number] 2010 [employer]- All Rights Reserved Reading location - IP/workstation name: [email or web address]
[2019-11-28] MEDS ORDERED: NORMAL SALINE 1000 ML 1,000 ML IV ONE (16:49)
[2019-11-28] MEDS ORDERED: VANCOMYCIN HCL INJ 1000 MG VIAL IV ONE (16:50)
[2019-11-28] MEDS ORDERED: PIPERACILLIN/TAZOBACTAM 3.375 GM VIAL IV ONE ×2 (16:50→23:01)
--- NOTE | 2019-11-28 16:52 | ER Document Report ---
ED General - General Chief Complaint: Abscess Stated Complaint: SKIN SORE/UPPER RIGHT THIGH Time Seen by Provider: 11/28/19 14:21 Primary Care Provider: ATIF MARSHALL PA-C [Primary Care Provider] - Follow up as needed Mode of Arrival: Ambulatory Information source: Patient Notes: This 44-year-old man presents to the emergency department with a history of right medial thigh redness and swelling. He states that the area has been increasing in size over the past 5 days. He is not diabetic, he has never had similar problems in the past. He denies trauma. He denies allergies to medications. TRAVEL OUTSIDE OF THE [place] IN LAST 30 DAYS: No - Related Data Allergies/Adverse Reactions: No Known Allergies Allergy (Verified 11/28/19 14:20) Past Medical History - General Information source: Patient - Social History Smoking Status: Current Every Day Smoker Drug Abuse: Marijuana Family History: Reviewed & Not Pertinent, Arthritis Patient has homicidal ideation: No Neurological Medical History: Reports: Hx Migraine Renal/ Medical History: Denies: Hx Peritoneal Dialysis GI Medical History: Reports: Hx Gastritis, Hx Gastroesophageal Reflux Disease, Hx Ulcer - Endoscopies, no symptoms of late, Hx Endoscopy Musculoskeletal Medical History: Reports Hx Arthritis Skin Medical History: Denies Hx MRSA Psychiatric Medical History: Reports: Hx Anxiety, Hx Bipolar Disorder, Hx Borderline Personality Disorder, Hx Depression - Immunizations Hx Diphtheria, Pertussis, Tetanus Vaccination: Yes - 6 mo ago Review of Systems - Review of Systems Notes: Constitutional: Negative for fever. HENT: Negative for sore throat. Eyes: Negative for visual changes. Cardiovascular: Negative for chest pain. Respiratory: Negative for shortness of breath. Gastrointestinal: Negative for abdominal pain, vomiting or diarrhea. Genitourinary: Negative for dysuria. Musculoskeletal: Negative for back pain. Skin: See HPI Neurological: Negative for headaches, weakness or numbness. 10 point ROS negative except as marked above and in HPI. Physical Exam - Vital signs Vitals: Temp Pulse Resp BP Pulse Ox 98.6 F 103 H 18 149/83 H 98 11/28/19 14:21 11/28/19 14:21 11/28/19 14:21 11/28/19 14:21 11/28/19 14:21 - Notes Notes: PHYSICAL EXAMINATION: Physical Exam: General: Well-nourished well-developed in no acute distress HEENT: NC/AT, pupils equal round and reactive to light, MM moist,nares clear, oropharynx clear, airway patent Neck: supple, no adenopathy, no masses. Good range of motion Lungs: clear, no wheezing, no rales no rhonchi CVS: Regular rate and rhythm no murmur gallop or rub Abdomen: Soft, active, nontender, no masses, no hepatosplenomegaly Ext: No edema, clubbing or cyanosis. Neuro: Alert and responsive, moving all 4 extremities on command, cranial nerves intact, no focal findings Skin: Right thigh, + erythema, increased warmth, induration, 2 areas open in the very proximal aspect of the medial thigh firmness and tenderness noted in the posterior aspect of the proximal thigh. Approximately 13 cm x 7 cm area of erythema. PSYCH: Normal mood, normal affect. Course - Re-evaluation Re-evalutation: 11/28/19 16:58 Blood cultures x2 was were performed as well as a lactate, IV fluids, Zosyn 3.375 g IV and vancomycin 1 g IV. A wound culture was also obtained. I have spoken with the surgeon Dr. Fields regarding possible abscess in his large area of cellulitis involving the right medial thigh. He will see the patient and evaluate for surgical intervention. I have spoken with the hospitalist group, patient is being admitted to the medical floor for IV antibiotic and further treatment. 11/28/19 17:00 - Vital Signs Vital signs: Temp Pulse Resp BP Pulse Ox 98.6 F 103 H 18 149/83 H 98 11/28/19 14:21 11/28/19 14:21 11/28/19 14:21 11/28/19 14:21 11/28/19 14:21 - Laboratory Result Diagrams: 11/28/19 14:41 11/28/19 14:41 Laboratory results interpreted by me: 11/28/19 11/28/19 14:41 14:41 WBC 15.4 H Lymph % (Auto) 12.1 L Absolute Neuts (auto) 12.0 H Seg Neutrophils % 78.1 H Potassium 3.5 L Glucose 126 H AST 16 L 11/28/19 16:52 I have reviewed laboratory data and used this information for the treatment decisions regarding the patient. - Diagnostic Test Radiology reviewed: Image reviewed, Reports reviewed Radiology results interpreted by me: 09/06/20 16:53 Ultrasound right lower extremity: Soft tissue edema at the right inner thigh, superficial swelling, 0.7 cm x 0.3 cm x 1.4 cm fluid collection extending into the soft tissue, cellulitis, infection, abscess cannot be excluded. Discharge - Discharge Clinical Impression: Cellulitis of right thigh Leukocytosis Qualifiers: Leukocytosis type: unspecified Qualified Code(s): D72.829 - Elevated white b lood cell count, unspecified Condition: Good Disposition: ADMITTED INPATIENT Admitting Provider: David (Hospitalist) Unit Admitted: Medical Floor Referrals: ATIF MARSHALL PA-C [Primary Care Provider] - Follow up as needed
[2019-11-28] MEDS ORDERED: ACETAMINOPHEN 325 MG TABLET PO PRN (17:53)
[2019-11-28] MEDS ORDERED: NORMAL SALINE 1000 ML 1,000 ML IV PRN (17:53)
[2019-11-28] MEDS ORDERED: IPRATROPIUM/ALBUTEROL 0.5-2.5 MG/3 ML AMPUL NEB PRN (17:53)
[2019-11-28] MEDS ORDERED: MAG HYDROX/AL HYDROX/SIMETH SUSP 30 ML UDCUP PO PRN (17:59)
[2019-11-28] MEDS ORDERED: ONDANSETRON HCL INJ/PF 4 MG/2 ML SDV IV PRN ×3 (17:59→21:12)
[2019-11-28] MEDS ORDERED: OXYCODONE-ACETAMINOPHEN 5-325 MG TABLET PO PRN ×3 (17:59→20:42)
[2019-11-28] MEDS ORDERED: VANCOMYCIN HCL 0 MG in DEXTROSE 5%-WATER 250 ML IV NR (18:00)
[2019-11-28] MEDS ORDERED: DEXTROSE 40% GEL 15 GM TUBE PO PRN ×2 (18:05)
[2019-11-28] MEDS ORDERED: DEXTROSE 50%-WATER 25 GM/50 ML DISP.SYRIN IV PRN ×2 (18:05)
[2019-11-28] MEDS ORDERED: GLUCAGON,HUMAN RECOMB 1 MG INJ SUBCUT PRN (18:05)
[2019-11-28] MEDS ORDERED: PIPERACILLIN/TAZOBACTAM 3.375 GM VIAL IV PRN (18:11)
[2019-11-28] MEDS ORDERED: KETOROLAC TROMETHAMINE INJ/PF 30 MG/1 ML SDV IV PRN (18:13)
[2019-11-28] MEDS ORDERED: VANCOMYCIN HCL INJ 1000 MG VIAL IV PRN (18:14)
--- NOTE | 2019-11-28 18:15 | PDOC H&P ---
History of Present Illness Admission Date/PCP: 11/28/19 17:21 ATIF MARSHALL PA-C Patient complains of: Left thigh wound/redness History of Present Illness: ADOLFO HENRY JR is a 44 year old male with a past medical history significant for HLD, GERD, chronic pain who presented to the ED w/ complaint of 5 days of progressively worsening erythema and edema to medial left thigh after "popping sweat pimples." Evaluation in the emergency department reveals mildly elevated heart rate (103) mild hypertension (149/83), leukocytosis (15.4), unremarkable chemistry in cluding lactic acid. Soft tissue ultrasound revealed diffuse soft tissue edema with a 0.7 x 0.3 x 1.4 cm fluid collection. He is provided IV vancomycin and Zosyn. Surgical consultation requested. He is referred to the hospitalist service for further evaluation and management of the above-stated complaints findings. Past Medical History Cardiac Medical History: Reports: Hyperlipidema Pulmonary Medical History: Reports: None Neurological Medical History: Reports: Migraine GI Medical History: Reports: Gastroesophageal Reflux Disease Musculoskeltal Medical History: Reports: Arthritis Psychiatric Medical History: Reports: Bipolar Disorder, Depression, Tobacco Dependency Traumatic Medical History: Reports: None Hematology: Reports: None Past Surgical History Past Surgical History: Reports: Other - Right hand trigger finger; sinus Social History Information Source: Patient Lives with: Alone Smoking Status: Current Every Day Smoker Cigarettes Packs Per Day: 3 Frequency of Alcohol Use: Rare Hx Recreational Drug Use: Yes - Remote per patient Drugs: Methadone Hx Prescription Drug Abuse: Yes - Advance Directive Resuscitation Status: Full Code Family History Family History: Reviewed & Not Pertinent, Arthritis Parental Family History Reviewed: Yes Children Family History Reviewed: Yes Sibling(s) Family History Reviewed.: Yes Medication/Allergy Home Medications: Benztropine Mesylate [Cogentin 1 mg Tablet] 1 mg PO DAILY #5 tablet 09/12/19 Clonidine HCl [Catapres 0.1 mg Tablet] 0.1 mg PO DAILY #5 tablet 09/12/19 Haloperidol [Haldol 5 mg Tablet] 5 mg PO BID #10 tablet 09/12/19 Allergies/Adverse Reactions: No Known Allergies Allergy (Verified 11/28/19 14:20) Review of Systems Constitutional: ABSENT: chills, fever(s), headache(s), weight gain, weight loss Eyes: ABSENT: visual disturbances Ears: ABSENT: hearing changes Cardiovascular: ABSENT: chest pain, dyspnea on exertion, edema, orthropnea, palpitations Respiratory: ABSENT: cough, hemoptysis Gastrointestinal: ABSENT: abdominal pain, constipation, diarrhea, hematemesis, hematochezia, nausea, vomiting Genitourinary: ABSENT: dysuria, hematuria Musculoskeletal: ABSENT: joint swelling Integumentary: PRESENT: as per HPI, erythema, lesions, wounds. ABSENT: rash Neurological: ABSENT: abnormal gait, abnormal speech, confusion, dizziness, focal weakness, syncope Psychiatric: ABSENT: anxiety, depression, homidical ideation, suicidal ideation Endocrine: ABSENT: cold intolerance, heat intolerance, polydipsia, polyuria Hematologic/Lymphatic: ABSENT: easy bleeding, easy bruising Physical Exam Vital Signs: Temp Pulse Resp BP Pulse Ox 98.6 F 103 H 18 149/83 H 98 11/28/19 14:21 11/28/19 14:21 11/28/19 14:21 11/28/19 14:21 11/28/19 14:21 Intake & Output 11/27/19 11/28/19 11/29/19 06:59 06:59 06:59 Intake Total 250 Balance 250 Weight 87.2 kg General appearance: PRESENT: no acute distress, cooperative, well-developed, well-nourished Head exam: PRESENT: atraumatic, normocephalic Eye exam: PRESENT: conjunctiva pink, EOMI, PERRLA. ABSENT: scleral icterus Ear exam: PRESENT: normal external ear exam, TM's normal bilaterally. ABSENT: bleeding, drainage Mouth exam: PRESENT: moist, tongue midline Respiratory exam: PRESENT: clear to auscultation elisabeth, symmetrical, unlabored. ABSENT: rales, rhonchi, wheezes Cardiovascular exam: PRESENT: RRR, +S1, +S2. ABSENT: diastolic murmur, rubs, systolic murmur Pulses: PRESENT: normal dorsalis pedis pul Vascular exam: PRESENT: normal capillary refill GI/Abdominal exam: PRESENT: normal bowel sounds, soft. ABSENT: distended, guarding, mass, organolmegaly, rebound, tenderness Rectal exam: PRESENT: deferred Extremities exam: PRESENT: full ROM. ABSENT: calf tenderness, clubbing, pedal edema Neurological exam: PRESENT: alert, awake, oriented to person, oriented to place, oriented to time, oriented to situation, CN II-XII grossly intact. ABSENT: motor sensory deficit Psychiatric exam: PRESENT: anxious, appropriate affect. ABSENT: homicidal ideation, suicidal ideation Skin exam: PRESENT: dry, erythema, warm, other - Right medial thigh erythema; 1 cm round shallow lesion with purulent drainage. Multiple small bullae w/ serous drainage. ABSENT: cyanosis, rash Results Laboratory Results: 11/28/19 14:41 11/28/19 14:41 11/28/19 11/28/19 11/28/19 14:41 14:41 17:03 WBC 15.4 H RBC 4.42 Hgb 13.6 Hct 39.6 MCV 90 MCH 30.7 MCHC 34.3 RDW 12.9 Plt Count 268 Seg Neutrophils % 78.1 H Sodium 140.2 Potassium 3.5 L Chloride 101 Carbon Dioxide 29 Anion Gap 10 BUN 16 Creatinine 0.85 Est GFR ( Amer) > 60 Glucose 126 H Lactic Acid 0.9 Calcium 9.0 Total Bilirubin 0.4 AST 16 L Alkaline Phosphatase 117 Total Protein 6.7 Albumin 3.9 Impressions: Extremity Ultrasound 11/28/19 14:26 IMPRESSION: Soft tissue edema at the right inner thigh. 0.7 x 0.3 x 1.4 cm fluid collection at the superficial soft tissues extending to the skin surface, superimposed acute infection/ abscess cannot be excluded. Assessment and Plan - Diagnosis (1) Cellulitis of right thigh Is this a current diagnosis for this admission?: Yes Plan: Soft tissue ultrasound revealed diffuse soft tissue edema with a 0.7 x 0.3 x 1.4 cm fluid collection. Blood and wound cultures pending. Patient is admitted to the medical floor. Surgery is consulted; appreciate their evaluation recommendations. He is empirically placed on IV vancomycin and Zosyn. EKG and CXR for pre-op screening. Analgesics as needed. (2) GERD (gastroesophageal reflux disease) Qualifiers: Esophagitis presence: without esophagitis Qualified Code(s): K21.9 - Gastro-esophageal reflux disease without esophagitis Is this a current diagnosis for this admission?: No Plan: Patient reports history of GERD History of numerous ulcers noted on EGD per patient. Utilizes Prilosec as outpatient. We will place patient on twice daily Protonix. (3) Leukocytosis Qualifiers: Leukocytosis type: unspecified Qualified Code(s): D72.829 - Elevated white blood cell count, unspecified Is this a current diagnosis for this admission?: Yes Plan: Secondary to #1. Cultures and antibiotics as above. (4) Tobacco dependence Is this a current diagnosis for this admission?: Yes Plan: Patient smokes 2 to 3 packs daily. Smoking cessation and nicotine replacement therapies provided. - Time Time Spent with patient: 35 or more minutes Medications reviewed and adjusted accordingly: Yes Anticipated Discharge Disposition: Home, Self Care Anticipated Discharge Timeframe: within 48 hours - pending surgical eval and recommendations
--- NOTE | 2019-11-28 18:17 | PDOC CONSULTATION ---
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 He denies other systemic symptoms. His past medical history is overall negative except for opioid addiction. Past Medical History Neurological Medical History: Reports: Migraine GI Medical History: Reports: Gastroesophageal Reflux Disease Musculoskeltal Medical History: Reports: Arthritis Psychiatric Medical History: Reports: Bipolar Disorder, Depression Social History Smoking Status: Current Every Day Smoker Family History Family History: Reviewed & Not Pertinent, Arthritis Parental Family History Reviewed: No Children Family History Reviewed: No Sibling(s) Family History Reviewed.: No Medication/Allergy Home Medications: Benztropine Mesylate [Cogentin 1 mg Tablet] 1 mg PO DAILY #5 tablet 09/12/19 Clonidine HCl [Catapres 0.1 mg Tablet] 0.1 mg PO DAILY #5 tablet 09/12/19 Haloperidol [Haldol 5 mg Tablet] 5 mg PO BID #10 tablet 09/12/19 Allergies/Adverse Reactions: No Known Allergies Allergy (Verified 11/28/19 14:20) Physical Exam Vital Signs: Temp Pulse Resp BP Pulse Ox 98.6 F 103 H 18 149/83 H 98 11/28/19 14:21 11/28/19 14:21 11/28/19 14:21 11/28/19 14:21 11/28/19 14:21 Intake & Output 11/27/19 11/28/19 11/29/19 06:59 06:59 06:59 Intake Total 250 Balance 250 Weight 87.2 kg General appearance: PRESENT: mild distress, thin, well-developed Head exam: PRESENT: atraumatic, normocephalic Eye exam: PRESENT: EOMI Mouth exam: PRESENT: moist, neck supple Neck exam: PRESENT: full ROM Respiratory exam: PRESENT: clear to auscultation elisabeth Cardiovascular exam: PRESENT: RRR GI/Abdominal exam: PRESENT: soft Rectal exam: PRESENT: deferred Extremities exam: PRESENT: full ROM Musculoskeletal exam: PRESENT: full ROM Neurological exam: PRESENT: alert, awake, normal gait Psychiatric exam: PRESENT: appropriate affect Skin exam: PRESENT: other - Right upper inner thigh = large area of erythema, induration, tenderness on palpation, with 2 small pinpoint areas of skin ulceration without obvious drainage Results Laboratory Results: 11/28/19 14:41 11/28/19 14:41 11/28/19 11/28/19 11/28/19 14:41 14:41 17:03 WBC 15.4 H RBC 4.42 Hgb 13.6 Hct 39.6 MCV 90 MCH 30.7 MCHC 34.3 RDW 12.9 Plt Count 268 Seg Neutrophils % 78.1 H Sodium 140.2 Potassium 3.5 L Chloride 101 Carbon Dioxide 29 Anion Gap 10 BUN 16 Creatinine 0.85 Est GFR ( Amer) > 60 Glucose 126 H Lactic Acid 0.9 Calcium 9.0 Total Bilirubin 0.4 AST 16 L Alkaline Phosphatase 117 Total Protein 6.7 Albumin 3.9 Impressions: Extremity Ultrasound 11/28/19 14:26 IMPRESSION: Soft tissue edema at the right inner thigh. 0.7 x 0.3 x 1.4 cm fluid collection at the superficial soft tissues extending to the skin surface, superimposed acute infection/ abscess cannot be excluded. Assessment & Plan - Diagnosis (1) Cellulitis of right thigh Is this a current diagnosis for this admission?: Yes (2) Leukocytosis Qualifiers: Leukocytosis type: unspecified Qualified Code(s): D72.829 - Elevated white blood cell count, unspecified Is this a current diagnosis for this admission?: Yes - Plan Summary Plan Summary: Assessment: History of right upper inner thigh edema, induration, tenderness, with ulceration the skin as per lab secondary to abscess History of methadone use for opioid abuse Leukocytosis 15.4 Patient has had a recent ingestion of solid food, this is been communicated with anesthesiologist Plan: Incision and drainage of right upper inner thigh abscess done emergently tonight Procedure, risks, benefits, complications, has been explained to the patient, he understands all the above, his questions were answered, and he desires to proce ed Start on IV antibiotics vancomycin and Zosyn Rapid COVID-19 test before surgery This patient will be admitted by the medical service the surgery
[2019-11-28] MEDS ORDERED: HALOPERIDOL LACTATE INJ 5 MG/1 ML VIAL IV ONE (18:30)
[2019-11-28] MEDS ORDERED: NICOTINE 21 MG/24 HR PATCH.TD24 TD ONE (18:30)
--- NOTE | 2019-11-28 18:36 | RADIOLOGY REPORT (SQ) ---
EXAM DESCRIPTION: CHEST SINGLE VIEW IMAGES COMPLETED DATE/TIME: 11/28/2019 6:22 pm REASON FOR STUDY: pre-op COMPARISON: None. NUMBER OF VIEWS: One view. TECHNIQUE: Single frontal radiographic view of the chest acquired. LIMITATIONS: None. FINDINGS: LUNGS AND PLEURA: No opacities, masses or pneumothorax. No pleural effusion. MEDIASTINUM AND HILAR STRUCTURES: No masses. Contour normal. HEART AND VASCULAR STRUCTURES: Heart normal in size. Normal vasculature. BONES: No acute findings. HARDWARE: None in the chest. OTHER: No other significant finding. IMPRESSION: NO SIGNIFICANT RADIOGRAPHIC FINDING IN THE CHEST. TECHNICAL DOCUMENTATION: JOB ID: [id number] 2010 [employer]- All Rights Reserved Reading location - IP/workstation name: [email or web address]
[2019-11-28] MEDS: PIPERACILLIN SODIUM/TAZOBACTAM 3.375 GM in NORMAL SALINE 100 ML IV SCH ×2 (18:44→23:42)
[2019-11-28] MEDS ORDERED: FENTANYL CITRATE INJ/PF 100 MCG/2 ML AMPUL ONE (19:50)
[2019-11-28] MEDS ORDERED: MIDAZOLAM 2 MG/2 ML INJ ONE ×2 (19:50→19:57)
[2019-11-28] MEDS ORDERED: LIDOCAINE 2% INJ-PF (20 MG/ML) 10 ML AMPUL ONE (19:50)
[2019-11-28] MEDS ORDERED: ONDANSETRON HCL INJ/PF 4 MG/2 ML SDV ONE (19:51)
[2019-11-28] MEDS ORDERED: PROPOFOL INJ 200 MG/20 ML VIAL IV ONE (19:51)
[2019-11-28] MEDS ORDERED: DEXMEDETOMIDINE INJ 80 MCG/20 ML VIAL IV ONE (20:00)
[2019-11-28] MEDS ORDERED: HYDROMORPHONE HCL INJ/PF 2 MG/ML AMPULE ONE (20:35)
[2019-11-28] MEDS ORDERED: LIDOCAINE 1%/EPINEPHRINE INJ 20 ML VIAL ONE (20:38)
[2019-11-28] MEDS ORDERED: BUPIVACAINE HCL 0.5%-EPI 1:200000 INJ/PF 30 ML VIAL ONE (20:39)
[2019-11-28] MEDS ORDERED: FENTANYL CITRATE INJ/PF 100 MCG/2 ML AMPUL IV PRN ×3 (20:42)
[2019-11-28] MEDS ORDERED: PROMETHAZINE HCL INJ 25 MG/1 ML VIAL IV PRN ×2 (20:42)
[2019-11-28] MEDS ORDERED: DIPHENHYDRAMINE HCL 50 MG/ML VIAL IV PRN (20:42)
[2019-11-28] MEDS ORDERED: MEPERIDINE HCL/PF INJ 25 MG/1 ML DISP.SYRIN IV PRN (20:42)
--- NOTE | 2019-11-28 21:12 | Operative Report ---
Operative Report DATE OF SURGERY: 11/28/19 PREOPERATIVE DIAGNOSIS: Right upper inner thigh abscess; left lateral upper thi gh abscess POSTOPERATIVE DIAGNOSIS: Same OPERATION: Incision and drainage of right upper inner thigh abscess; incision and drainage of left lateral thigh abscess SURGEON: ELIEL ARNOLD ANESTHESIA: GA - +60 mils 1% lidocaine mixed with half percent Marcaine volume to volume with epinephrine TISSUE REMOVED OR ALTERED: Tissue from left lateral thigh abscess; culture of pus from right upper inner thigh abscess COMPLICATIONS: None ESTIMATED BLOOD LOSS: Less than 10 mL INTRAOPERATIVE FINDINGS: Right upper inner thigh abscess; spontaneously drained left lateral thigh abscess PROCEDURE: The procedure was done in the operating room, the patient was placed in a supine position, the areas of the 2 abscesses were prepped and draped in usual fashion. The proposed line of incision was outlined with a surgical marker, a skin incision was then made with Bovie and the cord tissue was excised circumferentially from the spontaneously drained left lateral thigh abscess site; no subcutaneous abscess cavity was identified, the tissue was sent to pathology. The right upper inner thigh site was then approached, 3 incisions were made 1 just below the groin into in the medial aspect of the upper inner thigh. Following this, a moderate amount of pus was obtained. This was sent for aerobic anaerobic culture and Gram stain. After this, a finger was inserted inside the surgical wounds and the internal septations were disrupted so to make one single cavity. Following this, the abscess cavity was irrigated with approximately 500 mL of normal saline until clear. The 3 incisions were joined together with a 1/4 inch Eure drain was threaded cutaneously, the ends of the drain where tied to themselves with a 2-0 1 on suture. The abscess cavity was packed with half inch packing strip, covered with dry 4 x 4's, ABDs and tape were applied. Abscess cavity on the left was packed with one normal saline moistened 4 x 4, dry 4 x 4's and tape. The patient tolerated procedure well, was extubated and transferred to the recovery room in satisfactory conditions.
--- NOTE | 2019-11-28 21:58 | EKG REPORT ---
SEVERITY:- NORMAL ECG - SINUS RHYTHM : Confirmed by: Beck Best MD 28-Nov-2019 21:57:50
[2019-11-28] MEDS ORDERED: HEPARIN SOD (PORCINE) 5,000 UNIT/ML 1 ML VIAL SUBCUT SCH (22:00)
[2019-11-28] MEDS: FAMOTIDINE INJ/PF 20 MG/2 ML SDV IV SCH (22:33)
[2019-11-28] MEDS: NORMAL SALINE 1000 ML 1,000 ML IV PRN (22:34)
[2019-11-28] MEDS ORDERED: VANCOMYCIN HCL INJ 1000 MG VIAL ONE (23:00)
[2019-11-28] MEDS ORDERED: VANCOMYCIN HCL INJ 500 MG VIAL ONE (23:00)
[2019-11-28] MEDS: KETOROLAC TROMETHAMINE INJ/PF 30 MG/1 ML SDV IV SCH (23:43)
[2019-11-29] MEDS: ACETAMINOPHEN 1,000 MG/100 ML RTUPB IV SCH ×4 (03:27→21:00)
[2019-11-29] MEDS ORDERED: VANCOMYCIN HCL 1,500 MG in DEXTROSE 5%-WATER 250 ML IV ONE (04:00)
[2019-11-29] MEDS: NORMAL SALINE 1000 ML 1,000 ML IV PRN (04:32)
[2019-11-29 06:13] LABS: ABSOLUTE EOSINOPHILS # (AUTO) 0.3 10^3/uL (0.0-0.6); ABSOLUTE LYMPHOCYTES (AUTO) 1.5 10^3/uL (0.5-4.7); ABSOLUTE MONOCYTES (AUTO) 1.1 10^3/uL (0.1-1.4); ABSOLUTE NEUT (AUTO) 9.7 10^3/uL (1.7-8.2); BASOPHILS % (AUTO) 0.3 % (0-2); EOSINOPHILS % (AUTO) 2.4 % (0-6); HEMOGLOBIN 12.1 g/dL (13.5-17.0); LYMPHOCYTES % (AUTO) 12.1 % (13-45); MEAN CORPUSCULAR HEMOGLOBIN 30.2 pg (27.0-33.4); MEAN CORPUSCULAR HGB CONC 33.5 g/dL (32.0-36.0); MEAN CORPUSCULAR VOLUME 90 fl (80-97); MONOCYTES % (AUTO) 8.7 % (3-13); PLATELET COUNT 269 10^3/uL (150-450); RED CELL DISTRIBUTION WIDTH 13.1 % (11.5-14.0); SEGMENTED NEUTROPHILS % (AUTO) 76.5 % (42-78); TOTAL CELLS COUNTED % (AUTO) 100 %; WHITE BLOOD COUNT 12.7 10^3/uL (4.0-10.5)
[2019-11-29 06:34] LABS: ANION GAP 8 (5-19); BLOOD UREA NITROGEN 14 mg/dL (7-20); CALCIUM 8.4 mg/dL (8.4-10.2); CARBON DIOXIDE 26 mmol/L (22-30); CHLORIDE 106 mmol/L (98-107); GLUCOSE 100 mg/dL (75-110); POTASSIUM 3.6 mmol/L (3.6-5.0)
[2019-11-29] MEDS: KETOROLAC TROMETHAMINE INJ/PF 30 MG/1 ML SDV IV SCH ×3 (06:36→17:36)
[2019-11-29] MEDS: PANTOPRAZOLE SODIUM 40 MG TABLET.DR PO SCH ×2 (06:36→17:36)
[2019-11-29] MEDS: PIPERACILLIN SODIUM/TAZOBACTAM 3.375 GM in NORMAL SALINE 100 ML IV SCH ×3 (06:37→17:35)
[2019-11-29] MEDS: FAMOTIDINE INJ/PF 20 MG/2 ML SDV IV SCH ×2 (09:13→22:34)
[2019-11-29] MEDS: DOCUSATE SODIUM 100 MG CAPSULE PO SCH (09:13)
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
[2019-11-29] MEDS: LIDOCAINE 5% (700 MG) TRANSDERMAL ADH..PATCH TP SCH (11:47)
[2019-11-29] MEDS: MORPHINE SULFATE 10 MG/ML INJ IV PRN ×2 (11:51→19:22)
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
[2019-11-29] MEDS: NICOTINE 14 MG/24 HR PATCH.TD24 TD SCH (14:24)
[2019-11-29] MEDS: VANCOMYCIN HCL 1,250 MG in DEXTROSE 5%-WATER 250 ML IV SCH ×2 (14:24→22:33)
[2019-11-30] MEDS: KETOROLAC TROMETHAMINE INJ/PF 30 MG/1 ML SDV IV SCH ×5 (00:42→23:56)
[2019-11-30] MEDS: PIPERACILLIN SODIUM/TAZOBACTAM 3.375 GM in NORMAL SALINE 100 ML IV SCH ×5 (00:51→23:19)
[2019-11-30] MEDS: ACETAMINOPHEN 1,000 MG/100 ML RTUPB IV SCH ×4 (04:08→21:06)
[2019-11-30] MEDS: MORPHINE SULFATE 10 MG/ML INJ IV PRN (06:29)
[2019-11-30] MEDS: PANTOPRAZOLE SODIUM 40 MG TABLET.DR PO SCH ×2 (06:29→17:48)
[2019-11-30] MEDS: VANCOMYCIN HCL 1,250 MG in DEXTROSE 5%-WATER 250 ML IV SCH ×2 (06:29→14:05)
[2019-11-30] MEDS: FAMOTIDINE INJ/PF 20 MG/2 ML SDV IV SCH ×2 (09:16→21:07)
[2019-11-30] MEDS: DOCUSATE SODIUM 100 MG CAPSULE PO SCH (09:16)
[2019-11-30] MEDS: TRAMADOL HCL 50 MG TABLET PO PRN ×2 (09:16→18:11)
[2019-11-30] MEDS: NICOTINE 14 MG/24 HR PATCH.TD24 TD SCH (09:17)
[2019-11-30] MEDS: LIDOCAINE 5% (700 MG) TRANSDERMAL ADH..PATCH TP SCH (09:17)
[2019-11-30 11:40] LABS: HEMATOCRIT 34.5 % (37.9-51.0); HEMOGLOBIN 11.7 g/dL (13.5-17.0); MEAN CORPUSCULAR HEMOGLOBIN 30.2 pg (27.0-33.4); MEAN CORPUSCULAR HGB CONC 33.8 g/dL (32.0-36.0); MEAN CORPUSCULAR VOLUME 89 fl (80-97); PLATELET COUNT 284 10^3/uL (150-450); RED BLOOD COUNT 3.87 10^6/uL (4.35-5.55); WHITE BLOOD COUNT 10.8 10^3/uL (4.0-10.5)
[2019-11-30 12:02] LABS: ANION GAP 8 (5-19); BLOOD UREA NITROGEN 9 mg/dL (7-20); CALCIUM 8.6 mg/dL (8.4-10.2); CARBON DIOXIDE 27 mmol/L (22-30); CHLORIDE 106 mmol/L (98-107); GLUCOSE 100 mg/dL (75-110); POTASSIUM 3.7 mmol/L (3.6-5.0)
[2019-11-30 15:06] LABS: VANCOMYCIN,TROUGH 9.2 ug/mL (5.0-20.0)
--- NOTE | 2019-11-30 18:13 | PDOC PROGRESS REPORT ---
Subjective Progress Note for:: 11/30/19 Subjective:: comfortabler, c/o right inner upper thigh pain Reason For Visit: LLE CELLULITIS Physical Exam Vital Signs: Temp Pulse Resp BP Pulse Ox 98.5 F 90 14 145/84 H 98 11/30/19 10:00 11/30/19 14:39 11/30/19 14:39 11/29/19 23:10 11/30/19 14:39 Intake & Output 11/29/19 11/30/19 12/01/19 06:59 06:59 06:59 Intake Total 6665 3050 800 Output Total 745 925 Balance 5920 2125 800 Weight 90.9 kg 93.5 kg Skin exam: PRESENT: other - Right upper inner thigh = presence of area of induration with violaceous skin discoloration and green drainage Results Laboratory Results: 11/30/19 11:15 11/30/19 11:15 11/30/19 11/30/19 11:15 11:15 WBC 10.8 H RBC 3.87 L Hgb 11.7 L Hct 34.5 L MCV 89 MCH 30.2 MCHC 33.8 RDW 13.0 Plt Count 284 Sodium 140.7 Potassium 3.7 Chloride 106 Carbon Dioxide 27 Anion Gap 8 BUN 9 Creatinine 0.61 Est GFR ( Amer) > 60 Glucose 100 Calcium 8.6 11/28/19 20:40 Thigh - Right Gram Stain - Final 11/28/19 20:40 Thigh - Right Wound Culture - Final Mrsa (Meth Resis Staph Aureus) No Anaerobic Organisms Impressions: Chest X-Ray 11/28/19 00:00 IMPRESSION: NO SIGNIFICANT RADIOGRAPHIC FINDING IN THE CHEST. Extremity Ultrasound 11/28/19 14:26 IMPRESSION: Soft tissue edema at the right inner thigh. 0.7 x 0.3 x 1.4 cm fluid collection at the superficial soft tissues extending to the skin surface, superimposed acute infection/ abscess cannot be excluded. Assessment & Plan - Diagnosis (1) Cellulitis of right thigh Is this a current diagnosis for this admission?: Yes (2) Leukocytosis Qualifiers: Leukocytosis type: unspecified Qualified Code(s): D72.829 - Elevated white blood cell count, unspecified Is this a current diagnosis for this admission?: Yes - Time Anticipated Discharge Disposition: Home, Self Care Anticipated Discharge Timeframe: When medically ready - Plan Summary Plan Summary: Assessment: Postoperative day #2 following incision and drainage right upper inner thigh abscess and incisional drainage left lateral thigh abscess Culture from right thigh abscess is significant for MRSA as today Patient started on vancomycin Physical exam of the right upper inner thigh demonstrates less redness and induration; however, there is an area of violaceous discoloration of the uppermost inner most portion right thigh by a [place] drain site which most likely represents a developing abscess Plan: After midnight IV fluids Incision and drainage of right upper inner thigh abscess tomorrow Procedure, risks, benefits, complications explained to the patient, he understands all the above, and decides to proceed
[2019-11-30] MEDS ORDERED: HYDROMORPHONE HCL INJ/PF 2 MG/ML AMPULE IV PRN (18:15)
--- NOTE | 2019-11-30 18:29 | PDOC PROGRESS REPORT ---
Subjective Progress Note for:: 11/30/19 Subjective:: ADOLFO HENRY JR is a 44 year old male with a past medical history significant for HLD, GERD, chronic pain who was admitted 11/28/2019 with Cellulitis of the right thigh. No postop surgical I&D with [place] placement. Patient was seen on morning rounds. He was found sitting up to the recliner, comfortably, on room air. He reports severe discomfort to his right medial thigh described as burning and sharp. He reports that the pressure discomfort has improved. He does tell me that his pain is uncontrolled with current pain medication regimen and that he would prefer to leave AGAINST MEDICAL ADVICE then remain in house with subpar pain management. He is frustrated that he has not been seen by a surgeon; he is reminded that he was seen by Dr. Rainey yesterday and that the surgical service will evaluate him again sometime today. He denies fever, chills, chest pain, palpitations, dyspnea, orthopnea, abdominal pain, nausea vomiting or diarrhea. He reports good appetite. He has no other questions or concerns at this time. No concerns per nursing. Reason For Visit: LLE CELLULITIS Physical Exam Vital Signs: Temp Pulse Resp BP Pulse Ox 98.5 F 90 14 145/84 H 98 11/30/19 10:00 11/30/19 14:39 11/30/19 14:39 11/29/19 23:10 11/30/19 14:39 Intake & Output 11/29/19 11/30/19 12/01/19 06:59 06:59 06:59 Intake Total 6665 3050 900 Output Total 745 925 Balance 5920 2125 900 Weight 90.9 kg 93.5 kg General appearance: PRESENT: no acute distress, cooperative, well-developed, well-nourished - overweight Head exam: PRESENT: atraumatic, normocephalic Eye exam: PRESENT: conjunctiva pink, EOMI, PERRLA. ABSENT: scleral icterus Mouth exam: PRESENT: moist, tongue midline Teeth exam: PRESENT: poor dentation Neck exam: ABSENT: carotid bruit, JVD, lymphadenopathy, thyromegaly Respiratory exam: PRESENT: clear to auscultation elisabeth, symmetrical, unlabored. ABSENT: rales, rhonchi, wheezes Cardiovascular exam: PRESENT: RRR, +S1, +S2. ABSENT: diastolic murmur, rubs, systolic murmur Pulses: PRESENT: normal dorsalis pedis pul Vascular exam: PRESENT: normal capillary refill Extremities exam: PRESENT: full ROM. ABSENT: calf tenderness, clubbing, pedal edema Musculoskeletal exam: PRESENT: ambulatory Neurological exam: PRESENT: alert, awake, oriented to person, oriented to place, oriented to time, oriented to situation, CN II-XII grossly intact. ABSENT: motor sensory deficit Psychiatric exam: PRESENT: appropriate affect, normal mood. ABSENT: homicidal ideation, suicidal ideation Skin exam: PRESENT: dry, erythema, warm, other - Right medial thigh erythema and induration; [place] drains in place. Copious purulent fluid draining from wounds. Left lateral buttocks wound with packing in place, purulent fluid draining.. ABSENT: cyanosis, rash Results Laboratory Results: 11/30/19 11:15 11/30/19 11:15 11/30/19 11/30/19 11:15 11:15 WBC 10.8 H RBC 3.87 L Hgb 11.7 L Hct 34.5 L MCV 89 MCH 30.2 MCHC 33.8 RDW 13.0 Plt Count 284 Sodium 140.7 Potassium 3.7 Chloride 106 Carbon Dioxide 27 Anion Gap 8 BUN 9 Creatinine 0.61 Est GFR ( Amer) > 60 Glucose 100 Calcium 8.6 11/28/19 20:40 Thigh - Right Gram Stain - Final 11/28/19 20:40 Thigh - Right Wound Culture - Final Mrsa (Meth Resis Staph Aureus) No Anaerobic Organisms Impressions: Chest X-Ray 11/28/19 00:00 IMPRESSION: NO SIGNIFICANT RADIOGRAPHIC FINDING IN THE CHEST. Extremity Ultrasound 11/28/19 14:26 IMPRESSION: Soft tissue edema at the right inner thigh. 0.7 x 0.3 x 1.4 cm fluid collection at the superficial soft tissues extending to the skin surface, superimposed acute infection/ abscess cannot be excluded. Assessment and Plan - Diagnosis (1) Cellulitis of right thigh Is this a current diagnosis for this admission?: Yes Plan: Soft tissue ultrasound revealed diffuse soft tissue edema with a 0.7 x 0.3 x 1.4 cm fluid collection. Status post incision incision and drainage in the OR with [place] drains per Dr. Fields Blood Cultures are negative at 48 hours Wound cultures show MRSA and 2 strains gram-negative rods. Patient is admitted to the medical floor. Surgery is consulted; appreciate their evaluation recommendations. Wound care per the surgical service recommendation. Continue on IV vancomycin and Zosyn. Day #3 Analgesics as needed. (2) Abscess of right thigh Is this a current diagnosis for this admission?: Yes Plan: As above. (3) GERD (gastroesophageal reflux disease) Qualifiers: Esophagitis presence: without esophagitis Qualified Code(s): K21.9 - Gastro-esophageal reflux disease without esophagitis Is this a current diagnosis for this admission?: No Plan: Patient reports history of GERD History of numerous ulcers noted on EGD per patient. Utilizes Prilosec as outpatient. We will place patient on twice daily Protonix. (4) Leukocytosis Qualifiers: Leukocytosis type: unspecified Qualified Code(s): D72.829 - Elevated white blood cell count, unspecified Is this a current diagnosis for this admission?: Yes Plan: - secondary to Cellulitis - WBC 15.4-> 12.7-> 10.8 Cultures and antibiotics as above. Continue to monitor. (5) Tobacco dependence Is this a current diagnosis for this admission?: Yes Plan: Patient smokes 2 to 3 packs daily. Smoking cessation and nicotine replacement therapies provided. (6) Chronic back pain Qualifiers: Back pain location: back pain in unspecified location Back pain laterality: bilateral Qualified Code(s): M54.9 - Dorsalgia, unspecified; G89.29 - Other chronic pain Is this a current diagnosis for this admission?: Yes Plan: Currently on as needed Dilaudid and Toradol. Continue Lidoderm patch. Keep at bedside. - Time Time Spent with patient: 25-34 minutes Medications reviewed and adjusted accordingly: Yes Anticipated Discharge Disposition: Home with Home Health Anticipated Discharge Timeframe: >72 hrs
[2019-11-30] MEDS: OXYCODONE-ACETAMINOPHEN 5-325 MG TABLET PO PRN (21:07)
[2019-11-30] MEDS: VANCOMYCIN HCL 1,500 MG in DEXTROSE 5%-WATER 250 ML IV SCH (21:39)
[2019-11-30] MEDS ORDERED: NORMAL SALINE 1000 ML 1,000 ML IV PRN (22:00)
[2019-11-30] MEDS: HYDROMORPHONE HCL INJ/PF 2 MG/ML AMPULE IV PRN (23:14)
[2019-12-01] MEDS: ACETAMINOPHEN 1,000 MG/100 ML RTUPB IV SCH ×4 (03:58→20:54)
[2019-12-01 05:20] LABS: MEAN CORPUSCULAR HEMOGLOBIN 30.3 pg (27.0-33.4); MEAN CORPUSCULAR HGB CONC 34.2 g/dL (32.0-36.0); MEAN CORPUSCULAR VOLUME 89 fl (80-97); PLATELET COUNT 287 10^3/uL (150-450); RED BLOOD COUNT 3.94 10^6/uL (4.35-5.55); RED CELL DISTRIBUTION WIDTH 13.1 % (11.5-14.0); WHITE BLOOD COUNT 8.3 10^3/uL (4.0-10.5)
[2019-12-01 05:39] LABS: ANION GAP 6 (5-19); BLOOD UREA NITROGEN 12 mg/dL (7-20); CALCIUM 8.7 mg/dL (8.4-10.2); CARBON DIOXIDE 25 mmol/L (22-30); CHLORIDE 106 mmol/L (98-107); GLUCOSE 97 mg/dL (75-110); POTASSIUM 4.4 mmol/L (3.6-5.0)
[2019-12-01] MEDS: OXYCODONE-ACETAMINOPHEN 5-325 MG TABLET PO PRN ×4 (05:47→20:30)
[2019-12-01] MEDS: PANTOPRAZOLE SODIUM 40 MG TABLET.DR PO SCH ×2 (05:48→17:34)
[2019-12-01] MEDS: PIPERACILLIN SODIUM/TAZOBACTAM 3.375 GM in NORMAL SALINE 100 ML IV SCH ×3 (05:48→18:43)
[2019-12-01] MEDS: KETOROLAC TROMETHAMINE INJ/PF 30 MG/1 ML SDV IV SCH ×4 (05:48→23:43)
[2019-12-01] MEDS: VANCOMYCIN HCL 1,500 MG in DEXTROSE 5%-WATER 250 ML IV SCH ×3 (05:52→21:47)
[2019-12-01] MEDS: DOCUSATE SODIUM 100 MG CAPSULE PO SCH (09:54)
[2019-12-01] MEDS: FAMOTIDINE INJ/PF 20 MG/2 ML SDV IV SCH ×2 (10:14→21:47)
[2019-12-01] MEDS ORDERED: PROPOFOL INJ 200 MG/20 ML VIAL IV ONE ×3 (12:56→14:33)
[2019-12-01] MEDS ORDERED: FENTANYL CITRATE INJ/PF 100 MCG/2 ML AMPUL ONE (12:56)
[2019-12-01] MEDS ORDERED: MIDAZOLAM 2 MG/2 ML INJ ONE (12:56)
[2019-12-01] MEDS ORDERED: BUPIVACAINE HCL 0.5 % INJ/PF 30 ML SDV ONE (12:59)
[2019-12-01] MEDS ORDERED: DIPHENHYDRAMINE HCL 50 MG/ML VIAL IV PRN (14:11)
[2019-12-01] MEDS ORDERED: PROMETHAZINE HCL INJ 25 MG/1 ML VIAL IV PRN ×2 (14:11)
[2019-12-01] MEDS ORDERED: MEPERIDINE HCL/PF INJ 25 MG/1 ML DISP.SYRIN IV PRN (14:11)
[2019-12-01] MEDS ORDERED: FENTANYL CITRATE INJ/PF 100 MCG/2 ML AMPUL IV PRN ×3 (14:11)
--- NOTE | 2019-12-01 14:34 | Operative Report ---
Operative Report DATE OF SURGERY: 12/01/19 PREOPERATIVE DIAGNOSIS: MRSA right thigh abscess POSTOPERATIVE DIAGNOSIS: same OPERATION: Incision and drainage of right upper inner thigh MRSA abscess SURGEON: ELIEL ARNOLD ANESTHESIA: LMAC TISSUE REMOVED OR ALTERED: None COMPLICATIONS: None ESTIMATED BLOOD LOSS: Negligible INTRAOPERATIVE FINDINGS: Small abscess located in the inner most highest portion of the right thigh PROCEDURE: The procedure was done in the operating room, the patient was in a supine position, deep IV sedation induced by the nurse senior product development scientist, the genitalia were protected and the right upper inner thigh area was prepped with Betadine draped in sterile fashion. The previously placed [place] drains were left in place, a small abscess was identified in the innermost highest portion of the thigh, an incision was made with Bovie and a small amount of pus was obtained. No cultures were sent as the abscess is already been growing MRSA. An additional [place] drain was threaded between a previous counterincisions and the new larger incision. An additional counterincision was made in the medial aspect of the inner right thigh and a [place] drain was threaded between this opening and previously placed counterincision. The large subcutaneous tissue area was irr igated with normal saline until clear, packed with 4 inch Kerlix roll soaked in a 20% Betadine solution. Sterile dressings were applied followed by ABDs and tape. The patient tolerated procedure well and was transferred to recovery room in satisfactory conditions.
[2019-12-01] MEDS: NICOTINE 14 MG/24 HR PATCH.TD24 TD SCH (15:31)
[2019-12-01] MEDS: LIDOCAINE 5% (700 MG) TRANSDERMAL ADH..PATCH TP SCH (15:32)
--- NOTE | 2019-12-01 18:47 | PDOC PROGRESS REPORT ---
Subjective Progress Note for:: 12/01/19 Subjective:: Still a lot of Pain complaints especially associated with dressing changes. Reason For Visit: LLE CELLULITIS Physical Exam Vital Signs: Temp Pulse Resp BP Pulse Ox 97.6 F 57 L 15 130/92 H 98 12/01/19 14:55 12/01/19 14:55 12/01/19 14:55 12/01/19 14:55 12/01/19 14:55 Intake & Output 11/30/19 12/01/19 12/02/19 06:59 06:59 06:59 Intake Total 3050 2912 1600 Output Total 925 525 320 Balance 2125 2387 1280 Weight 93.5 kg 93.5 kg General appearance: PRESENT: no acute distress, well-developed, well-nourished Head exam: PRESENT: atraumatic, normocephalic Eye exam: PRESENT: conjunctiva pink, EOMI, PERRLA. ABSENT: scleral icterus Ear exam: PRESENT: normal external ear exam Mouth exam: PRESENT: moist, tongue midline Neck exam: ABSENT: carotid bruit, JVD, lymphadenopathy, thyromegaly Respiratory exam: PRESENT: clear to auscultation elisabeth. ABSENT: rales, rhonchi, wheezes Cardiovascular exam: PRESENT: RRR. ABSENT: diastolic murmur, rubs, systolic murmur Pulses: PRESENT: normal dorsalis pedis pul Vascular exam: PRESENT: normal capillary refill GI/Abdominal exam: PRESENT: normal bowel sounds, soft. ABSENT: distended, guarding, mass, organolmegaly, rebound, tenderness Rectal exam: PRESENT: deferred Extremities exam: ABSENT: calf tenderness, clubbing, pedal edema Musculoskeletal exam: PRESENT: other - dressing R groin with vac Neurological exam: PRESENT: alert, awake, oriented to person, oriented to place, oriented to time, oriented to situation, CN II-XII grossly intact. ABSENT: motor sensory deficit Psychiatric exam: PRESENT: appropriate affect, normal mood. ABSENT: homicidal ideation, suicidal ideation Skin exam: PRESENT: dry, intact, warm. ABSENT: cyanosis, rash Results Laboratory Results: 12/01/19 04:43 12/01/19 04:43 12/01/19 12/01/19 04:43 04:43 WBC 8.3 RBC 3.94 L Hgb 12.0 L Hct 35.0 L MCV 89 MCH 30.3 MCHC 34.2 RDW 13.1 Plt Count 287 Sodium 137.3 Potassium 4.4 Chloride 106 Carbon Dioxide 25 Anion Gap 6 BUN 12 Creatinine 0.67 Est GFR ( Amer) > 60 Glucose 97 Calcium 8.7 11/28/19 17:03 Thigh - Right Gram Stain - Final 11/28/19 17:03 Thigh - Right Wound Culture - Final Mrsa (Meth Resis Staph Aureus) Enterobacter Cloacae Impressions: Chest X-Ray 11/28/19 00:00 IMPRESSION: NO SIGNIFICANT RADIOGRAPHIC FINDING IN THE CHEST. Extremity Ultrasound 11/28/19 14:26 IMPRESSION: Soft tissue edema at the right inner thigh. 0.7 x 0.3 x 1.4 cm fluid collection at the superficial soft tissues extending to the skin surface, superimposed acute infection/ abscess cannot be excluded. Assessment and Plan - Diagnosis (1) Abscess of right thigh Is this a current diagnosis for this admission?: Yes Plan: S/p I and D by Surgery (2) Cellulitis of right thigh Is this a current diagnosis for this admission?: Yes Plan: Soft tissue ultrasound revealed diffuse soft tissue edema with a 0.7 x 0.3 x 1.4 cm fluid collection. Status post incision incision and drainage in the OR with [place] drains per Dr. Fields Blood Cultures are negative at 48 hours Wound cultures show MRSA and 2 strains gram-negative rods. Patient is admitted to the medical floor. Surgery is consulted; appreciate their evaluation recommendations. Wound care per the surgical service recommendation. Continue on IV vancomycin and Zosyn. Day #4 Analgesics as needed. (3) Chronic back pain Qualifiers: Back pain location: back pain in unspecified location Back pain laterality: bilateral Qualified Code(s): M54.9 - Dorsalgia, unspecified; G89.29 - Other chronic pain Is this a current diagnosis for this admission?: Yes Plan: Currently on as needed Dilaudid and Toradol. Continue Lidoderm patch. Keep at bedside. (4) Leukocytosis Qualifiers: Leukocytosis type: unspecified Qualified Code(s): D72.829 - Elevated white blood cell count, unspecified Is this a current diagnosis for this admission?: Yes Plan: - secondary to Cellulitis - WBC 15.4-> 12.7-> 10.8 Cultures and antibiotics as above. Continue to monitor. (5) Tobacco dependence Is this a current diagnosis for this admission?: Yes Plan: Patient smokes 2 to 3 packs daily. Smoking cessation and nicotine replacement therapies provided. - Time Anticipated Discharge Disposition: Home, Self Care Anticipated Discharge Timeframe: within 72 hours
[2019-12-01] MEDS: HYDROMORPHONE HCL INJ/PF 2 MG/ML AMPULE IV PRN (23:44)
[2019-12-02] MEDS: PIPERACILLIN SODIUM/TAZOBACTAM 3.375 GM in NORMAL SALINE 100 ML IV SCH ×3 (00:41→11:52)
[2019-12-02] MEDS: KETOROLAC TROMETHAMINE INJ/PF 30 MG/1 ML SDV IV SCH ×2 (05:20→11:51)
[2019-12-02] MEDS: PANTOPRAZOLE SODIUM 40 MG TABLET.DR PO SCH (05:20)
[2019-12-02] MEDS: VANCOMYCIN HCL 1,500 MG in DEXTROSE 5%-WATER 250 ML IV SCH ×3 (06:06→21:02)
[2019-12-02 06:22] LABS: VANCOMYCIN,TROUGH 15.6 ug/mL (5.0-20.0)
[2019-12-02] MEDS: DOCUSATE SODIUM 100 MG CAPSULE PO SCH (09:54)
[2019-12-02] MEDS: FAMOTIDINE INJ/PF 20 MG/2 ML SDV IV SCH (09:57)
[2019-12-02] MEDS: OXYCODONE-ACETAMINOPHEN 5-325 MG TABLET PO PRN ×2 (09:57→14:46)
[2019-12-02] MEDS: NICOTINE 14 MG/24 HR PATCH.TD24 TD SCH (09:57)
[2019-12-02] MEDS: LIDOCAINE 5% (700 MG) TRANSDERMAL ADH..PATCH TP SCH (11:51)
--- NOTE | 2019-12-02 16:15 | PDOC PROGRESS REPORT ---
Subjective Progress Note for:: 12/02/19 Subjective:: Still a lot of Pain complaints especially associated with dressing changes. Reason For Visit: LLE CELLULITIS Physical Exam Vital Signs: Temp Pulse Resp BP Pulse Ox 98.6 F 80 18 142/80 H 100 12/02/19 14:55 12/02/19 14:55 12/02/19 14:55 12/02/19 14:55 12/02/19 14:55 Intake & Output 12/01/19 12/02/19 12/03/19 06:59 06:59 06:59 Intake Total 2912 3520 600 Output Total 525 1320 Balance 2387 2200 600 Weight 93.5 kg 93.6 kg General appearance: PRESENT: no acute distress, well-developed, well-nourished Head exam: PRESENT: atraumatic, normocephalic Eye exam: PRESENT: conjunctiva pink, EOMI, PERRLA. ABSENT: scleral icterus Ear exam: PRESENT: normal external ear exam Mouth exam: PRESENT: moist, tongue midline Neck exam: ABSENT: carotid bruit, JVD, lymphadenopathy, thyromegaly Respiratory exam: PRESENT: clear to auscultation elisabeth, unlabored. ABSENT: rales, rhonchi, wheezes Cardiovascular exam: PRESENT: RRR, +S1, +S2. ABSENT: diastolic murmur, rubs, systolic murmur Pulses: PRESENT: normal dorsalis pedis pul Vascular exam: PRESENT: normal capillary refill GI/Abdominal exam: PRESENT: normal bowel sounds, soft. ABSENT: distended, guarding, mass, organolmegaly, rebound, tenderness Rectal exam: PRESENT: deferred Extremities exam: PRESENT: other - Right groin dressing. ABSENT: calf tenderness, clubbing, pedal edema Neurological exam: PRESENT: alert, awake, oriented to person, oriented to place, oriented to time, oriented to situation, CN II-XII grossly intact. ABSENT: m otor sensory deficit Psychiatric exam: PRESENT: appropriate affect, normal mood. ABSENT: homicidal ideation, suicidal ideation Skin exam: PRESENT: dry, intact, warm. ABSENT: cyanosis, rash Results Laboratory Results: 12/01/19 04:43 12/01/19 04:43 Impressions: Chest X-Ray 11/28/19 00:00 IMPRESSION: NO SIGNIFICANT RADIOGRAPHIC FINDING IN THE CHEST. Extremity Ultrasound 11/28/19 14:26 IMPRESSION: Soft tissue edema at the right inner thigh. 0.7 x 0.3 x 1.4 cm fluid collection at the superficial soft tissues extending to the skin surface, superimposed acute infection/ abscess cannot be excluded. Assessment and Plan - Diagnosis (1) Abscess of right thigh Is this a current diagnosis for this admission?: Yes Plan: S/p I and D A small abscess located in the inner most high expression of the right thigh was evacuated with incision and drainage and placement of Johnna drain (2) Cellulitis of right thigh Is this a current diagnosis for this admission?: Yes Plan: Soft tissue ultrasound revealed diffuse soft tissue edema with a 0.7 x 0.3 x 1.4 cm fluid collection. Status post incision incision and drainage in the OR with [place] drains per Dr. Fields Blood Cultures are negative at 48 hours Wound cultures show MRSA and 2 strains gram-negative rods. Patient is admitted to the medical floor. Surgery is consulted; appreciate their evaluation recommendations. Wound care per the surgical service recommendation. Continue on IV vancomycin and Zosyn. Day #5, will consider changing antibiotics or list simplifying from Zosyn to ceftriaxone Analgesics as needed. (3) Chronic back pain Qualifiers: Back pain location: back pain in unspecified location Back pain laterality: bilateral Qualified Code(s): M54.9 - Dorsalgia, unspecified; G89.29 - Other chronic pain Is this a current diagnosis for this admission?: Yes Plan: Currently on as needed Dilaudid and Toradol. Have added scheduled Percocet to his regimen Continue Lidoderm patch. Keep at bedside. (4) Leukocytosis Qualifiers: Leukocytosis type: unspecified Qualified Code(s): D72.829 - Elevated white blood cell count, unspecified Is this a current diagnosis for this admission?: Yes Plan: - secondary to Cellulitis - WBC 15.4-> 12.7-> 10.8 continues to trend down Cultures and antibiotics as above. Continue to monitor. (5) Tobacco dependence Is this a current diagnosis for this admission?: Yes Plan: Patient smokes 2 to 3 packs daily. Smoking cessation and nicotine replacement therapies provided. - Time Anticipated Discharge Disposition: Home with Home Health Anticipated Discharge Timeframe: TBD
[2019-12-02] MEDS: OXYCODONE-ACETAMINOPHEN 5-325 MG TABLET PO SCH (18:17)
[2019-12-02] MEDS: KETOROLAC TROMETHAMINE INJ/PF 30 MG/1 ML SDV IV PRN (21:01)
[2019-12-03] MEDS: HYDROMORPHONE HCL INJ/PF 2 MG/ML AMPULE IV PRN ×3 (01:50→21:25)
[2019-12-03] MEDS: PANTOPRAZOLE SODIUM 40 MG TABLET.DR PO SCH (05:04)
[2019-12-03] MEDS: OXYCODONE-ACETAMINOPHEN 5-325 MG TABLET PO SCH ×4 (05:04→23:34)
[2019-12-03] MEDS: VANCOMYCIN HCL 1,500 MG in DEXTROSE 5%-WATER 250 ML IV SCH ×3 (05:04→21:25)
[2019-12-03 07:18] LABS: ABSOLUTE EOSINOPHILS # (AUTO) 0.5 10^3/uL (0.0-0.6); ABSOLUTE LYMPHOCYTES (AUTO) 2.6 10^3/uL (0.5-4.7); ABSOLUTE MONOCYTES (AUTO) 1.1 10^3/uL (0.1-1.4); BASOPHILS % (AUTO) 0.4 % (0-2); EOSINOPHILS % (AUTO) 4.6 % (0-6); HEMATOCRIT 35.1 % (37.9-51.0); LYMPHOCYTES % (AUTO) 25.1 % (13-45); MEAN CORPUSCULAR HEMOGLOBIN 30.4 pg (27.0-33.4); MEAN CORPUSCULAR HGB CONC 34.1 g/dL (32.0-36.0); MEAN CORPUSCULAR VOLUME 89 fl (80-97); MONOCYTES % (AUTO) 11.1 % (3-13); PLATELET COUNT 331 10^3/uL (150-450); RED BLOOD COUNT 3.95 10^6/uL (4.35-5.55); RED CELL DISTRIBUTION WIDTH 13.2 % (11.5-14.0); SEGMENTED NEUTROPHILS % (AUTO) 58.8 % (42-78); TOTAL CELLS COUNTED % (AUTO) 100 %; WHITE BLOOD COUNT 10.2 10^3/uL (4.0-10.5)
[2019-12-03 07:27] LABS: ANION GAP 6 (5-19); BLOOD UREA NITROGEN 11 mg/dL (7-20); CALCIUM 8.7 mg/dL (8.4-10.2); CARBON DIOXIDE 27 mmol/L (22-30); CHLORIDE 107 mmol/L (98-107); GLUCOSE 90 mg/dL (75-110); POTASSIUM 4.1 mmol/L (3.6-5.0)
[2019-12-03] MEDS: KETOROLAC TROMETHAMINE INJ/PF 30 MG/1 ML SDV IV PRN (07:57)
[2019-12-03] MEDS: NICOTINE 14 MG/24 HR PATCH.TD24 TD SCH (10:14)
[2019-12-03] MEDS: DOCUSATE SODIUM 100 MG CAPSULE PO SCH (10:14)
--- NOTE | 2019-12-03 13:41 | PDOC PROGRESS REPORT ---
Subjective Progress Note for:: 12/03/19 Subjective:: The patient is complaining of right upper inner thigh pain Reason For Visit: LLE CELLULITIS Physical Exam Vital Signs: Temp Pulse Resp BP Pulse Ox 97.8 F 81 18 140/87 H 98 12/03/19 11:41 12/03/19 11:41 12/03/19 11:41 12/03/19 11:41 12/03/19 11:41 Intake & Output 12/02/19 12/03/19 12/04/19 06:59 06:59 06:59 Intake Total 3520 2230 Output Total 1320 600 Balance 2200 1630 Weight 93.6 kg 93.6 kg General appearance: PRESENT: no acute distress, thin Extremities exam: PRESENT: other - Right lower extremity = upper inner thigh with multiple [place] drains, several incisions all granulating, minimal edema, surrounding erythema particularly in the upper inner most portion of the thigh, minimal drainage Results Laboratory Results: 12/03/19 06:03 12/03/19 06:03 12/03/19 12/03/19 06:03 06:03 WBC 10.2 RBC 3.95 L Hgb 12.0 L Hct 35.1 L MCV 89 MCH 30.4 MCHC 34.1 RDW 13.2 Plt Count 331 Seg Neutrophils % 58.8 Sodium 139.8 Potassium 4.1 Chloride 107 Carbon Dioxide 27 Anion Gap 6 BUN 11 Creatinine 0.75 Est GFR ( Amer) > 60 Glucose 90 Calcium 8.7 Impressions: Chest X-Ray 11/28/19 00:00 IMPRESSION: NO SIGNIFICANT RADIOGRAPHIC FINDING IN THE CHEST. Extremity Ultrasound 11/28/19 14:26 IMPRESSION: Soft tissue edema at the right inner thigh. 0.7 x 0.3 x 1.4 cm fluid collection at the superficial soft tissues extending to the skin surface, superimposed acute infection/ abscess cannot be excluded. Assessment & Plan - Diagnosis (1) Cellulitis of right thigh Is this a current diagnosis for this admission?: Yes (2) Leukocytosis Qualifiers: Leukocytosis type: unspecified Qualified Code(s): D72.829 - Elevated white blood cell count, unspecified Is this a current diagnosis for this admission?: Yes - Time Anticipated Discharge Disposition: Home, Self Care Anticipated Discharge Timeframe: within 72 hours - Plan Summary Plan Summary: Assessment: Postoperative day #4 and 2 after incision and drainage of right upper inner thigh abscess Soft tissue healing with decreasing erythema and edema Surgical wounds granulating Blood cell count normal Culture positive for MRSA and Enterobacter Plan: Every 12 hours normal saline wet-to-dry dressing changes to the right thigh w ounds Continue course of IV antibiotics Patient can be discharged home once the wound presents with less cellulitis
--- NOTE | 2019-12-03 16:29 | PDOC PROGRESS REPORT ---
Subjective Progress Note for:: 12/03/19 Subjective:: Still c/o ot of Pain complaints especially associated with dressing changes. Reason For Visit: LLE CELLULITIS Physical Exam Vital Signs: Temp Pulse Resp BP Pulse Ox 97.9 F 85 17 142/90 H 100 12/03/19 15:24 12/03/19 15:24 12/03/19 15:24 12/03/19 15:24 12/03/19 15:24 Intake & Output 12/02/19 12/03/19 12/04/19 06:59 06:59 06:59 Intake Total 3520 2230 250 Output Total 1320 600 Balance 2200 1630 250 Weight 93.6 kg 93.6 kg General appearance: PRESENT: no acute distress, well-developed, well-nourished Head exam: PRESENT: atraumatic, normocephalic Eye exam: PRESENT: conjunctiva pink, EOMI, PERRLA. ABSENT: scleral icterus Ear exam: PRESENT: normal external ear exam Mouth exam: PRESENT: moist, tongue midline Neck exam: ABSENT: carotid bruit, JVD, lymphadenopathy, thyromegaly Respiratory exam: PRESENT: clear to auscultation elisabeth, unlabored. ABSENT: rales, rhonchi, wheezes Cardiovascular exam: PRESENT: RRR, +S1, +S2. ABSENT: diastolic murmur, rubs, systolic murmur Pulses: PRESENT: normal dorsalis pedis pul Vascular exam: PRESENT: normal capillary refill GI/Abdominal exam: PRESENT: normal bowel sounds, soft. ABSENT: distended, guarding, mass, organolmegaly, rebound, tenderness Rectal exam: PRESENT: deferred Extremities exam: PRESENT: full ROM, other - R groin dressing and wound vac. ABSENT: calf tenderness, clubbing, pedal edema Neurological exam: PRESENT: alert, awake, oriented to person, oriented to place, oriented to time, oriented to situation, CN II-XII grossly intact. ABSENT: motor sensory deficit Psychiatric exam: PRESENT: appropriate affect, normal mood. ABSENT: homicidal ideation, suicidal ideation Skin exam: PRESENT: intact, warm. ABSENT: cyanosis, rash Results Laboratory Results: 12/03/19 06:03 12/03/19 06:03 12/03/19 12/03/19 06:03 06:03 WBC 10.2 RBC 3.95 L Hgb 12.0 L Hct 35.1 L MCV 89 MCH 30.4 MCHC 34.1 RDW 13.2 Plt Count 331 Seg Neutrophils % 58.8 Sodium 139.8 Potassium 4.1 Chloride 107 Carbon Dioxide 27 Anion Gap 6 BUN 11 Creatinine 0.75 Est GFR ( Amer) > 60 Glucose 90 Calcium 8.7 Impressions: Chest X-Ray 11/28/19 00:00 IMPRESSION: NO SIGNIFICANT RADIOGRAPHIC FINDING IN THE CHEST. Extremity Ultrasound 11/28/19 14:26 IMPRESSION: Soft tissue edema at the right inner thigh. 0.7 x 0.3 x 1.4 cm fluid collection at the superficial soft tissues extending to the skin surface, superimposed acute infection/ abscess cannot be excluded. Assessment and Plan - Diagnosis (1) Abscess of right thigh Is this a current diagnosis for this admission?: Yes Plan: S/p I and D by Surgery (2) Cellulitis of right thigh Is this a current diagnosis for this admission?: Yes Plan: Soft tissue ultrasound revealed diffuse soft tissue edema with a 0.7 x 0.3 x 1.4 cm fluid collection. Status post incision incision and drainage in the OR with [place] drains per Dr. Fields Blood Cultures are negative at 48 hours Wound cultures show MRSA and 2 strains gram-negative rods. Patient is admitted to the medical floor. Surgery is consulted; appreciate their evaluation recommendations. Wound care per the surgical service recommendation. Continue on IV vancomycin and will change to Ceftriaxone Analgesics as needed. (3) Chronic back pain Qualifiers: Back pain location: back pain in unspecified location Back pain laterality: bilateral Qualified Code(s): M54.9 - Dorsalgia, unspecified; G89.29 - Other chronic pain Is this a current diagnosis for this admission?: Yes Plan: Currently on as needed Dilaudid and Toradol. Continue Percocet scheduled Lidoderm patch. (4) Leukocytosis Qualifiers: Leukocytosis type: unspecified Qualified Code(s): D72.829 - Elevated white blood cell count, unspecified Is this a current diagnosis for this admission?: Yes Plan: - secondary to Cellulitis - WBC 15.4-> 12.7-> 10.8 Cultures and antibiotics as above. Continue to monitor. (5) Tobacco dependence Is this a current diagnosis for this admission?: Yes - Time Time Spent with patient: 15-24 minutes Medications reviewed and adjusted accordingly: Yes Anticipated Discharge Disposition: Home with Home Health Anticipated Discharge Timeframe: within 72 hours
[2019-12-03] MEDS: CEFTRIAXONE 2 GM/D5W RTU 2 GM/50 ML RTUPB IV SCH (17:36)
[2019-12-03] MEDS: LIDOCAINE 5% (700 MG) TRANSDERMAL ADH..PATCH TP SCH (21:25)
[2019-12-04] MEDS: PANTOPRAZOLE SODIUM 40 MG TABLET.DR PO SCH (05:03)
[2019-12-04] MEDS: VANCOMYCIN HCL 1,500 MG in DEXTROSE 5%-WATER 250 ML IV SCH ×3 (05:03→22:15)
[2019-12-04] MEDS: OXYCODONE-ACETAMINOPHEN 5-325 MG TABLET PO SCH ×4 (05:03→23:53)
[2019-12-04] MEDS: HYDROMORPHONE HCL INJ/PF 2 MG/ML AMPULE IV PRN ×2 (06:42→12:27)
[2019-12-04] MEDS: KETOROLAC TROMETHAMINE INJ/PF 30 MG/1 ML SDV IV PRN ×2 (11:39→17:39)
[2019-12-04] MEDS: DOCUSATE SODIUM 100 MG CAPSULE PO SCH (11:40)
[2019-12-04] MEDS: NICOTINE 14 MG/24 HR PATCH.TD24 TD SCH (11:45)
[2019-12-04] MEDS: NICOTINE 21 MG/24 HR PATCH.TD24 TD SCH (13:00)
--- NOTE | 2019-12-04 13:17 | PDOC PROGRESS REPORT ---
Subjective Progress Note for:: 12/04/19 Subjective:: no c/o Reason For Visit: LLE CELLULITIS Physical Exam Vital Signs: Temp Pulse Resp BP Pulse Ox 97.9 F 71 20 132/92 H 100 12/04/19 08:10 12/04/19 08:10 12/04/19 08:10 12/04/19 08:10 12/04/19 08:10 Intake & Output 12/03/19 12/04/19 12/05/19 06:59 06:59 06:59 Intake Total 2230 2190 Output Total 600 725 Balance 1630 1465 Weight 93.6 kg 93.8 kg General appearance: PRESENT: no acute distress Skin exam: PRESENT: other - R thigh= wounds healing, [place] drains in place, some induration, minimal erythema, no drainage or odor Results Laboratory Results: 12/03/19 06:03 12/03/19 06:03 11/28/19 17:30 Blood Blood Culture - Final NO GROWTH IN 5 DAYS 11/28/19 17:03 Blood Blood Culture - Final NO GROWTH IN 5 DAYS Impressions: Chest X-Ray 11/28/19 00:00 IMPRESSION: NO SIGNIFICANT RADIOGRAPHIC FINDING IN THE CHEST. Extremity Ultrasound 11/28/19 14:26 IMPRESSION: Soft tissue edema at the right inner thigh. 0.7 x 0.3 x 1.4 cm fluid collection at the superficial soft tissues extending to the skin surface, superimposed acute infection/ abscess cannot be excluded. Assessment & Plan - Diagnosis (1) MRSA (methicillin resistant Staphylococcus aureus) infection Is this a current diagnosis for this admission?: Yes (2) Cellulitis of right thigh Is this a current diagnosis for this admission?: Yes (3) Leukocytosis Qualifiers: Leukocytosis type: unspecified Qualified Code(s): D72.829 - Elevated white blood cell count, unspecified Is this a current diagnosis for this admission?: Yes - Time Anticipated Discharge Disposition: Home, Self Care Anticipated Discharge Timeframe: as per Hospitalist - Plan Summary Plan Summary: A/ POD #6 and #3 after I&D right thigh abscess Wounds clean, no drainage, minimal nduration MRSA ppositive cx P/ Patient can be d/c to home by my viewpoint F/u w/ Surgery clinic in 2 weeks for drain removal NS wet-to-dry dressing change BID (pack wounds lightly) Shower only until wounds are open and drains are in place, then patient can tub bathe Oral abx as per Hospitalist Return to work in 1-2 weeks No narcotics on discharge I will sign off.
--- NOTE | 2019-12-04 16:56 | PDOC PROGRESS REPORT ---
Subjective Progress Note for:: 12/04/19 Subjective:: Still c/o ot of Pain complaints especially associated with dressing changes. Reason For Visit: LLE CELLULITIS Physical Exam Vital Signs: Temp Pulse Resp BP Pulse Ox 97.3 F 68 24 H 138/94 H 99 12/04/19 15:51 12/04/19 15:51 12/04/19 15:51 12/04/19 15:51 12/04/19 15:51 Intake & Output 12/03/19 12/04/19 12/05/19 06:59 06:59 06:59 Intake Total 2230 2190 900 Output Total 600 725 Balance 1630 1465 900 Weight 93.6 kg 93.8 kg General appearance: PRESENT: no acute distress, well-developed, well-nourished Head exam: PRESENT: atraumatic, normocephalic Eye exam: PRESENT: conjunctiva pink, EOMI, PERRLA. ABSENT: scleral icterus Ear exam: PRESENT: normal external ear exam Mouth exam: PRESENT: moist, tongue midline Neck exam: ABSENT: carotid bruit, JVD, lymphadenopathy, thyromegaly Respiratory exam: PRESENT: clear to auscultation elisabeth. ABSENT: rales, rhonchi, wheezes Cardiovascular exam: PRESENT: RRR, +S1, +S2. ABSENT: diastolic murmur, rubs, systolic murmur Pulses: PRESENT: normal dorsalis pedis pul Vascular exam: PRESENT: normal capillary refill GI/Abdominal exam: PRESENT: normal bowel sounds, soft. ABSENT: distended, guarding, mass, organolmegaly, rebound, tenderness Rectal exam: PRESENT: deferred Extremities exam: PRESENT: other - R groin wound, dressing overlay. ABSENT: calf tenderness, clubbing, pedal edema Musculoskeletal exam: PRESENT: ambulatory Neurological exam: PRESENT: alert, awake, oriented to person, oriented to place, oriented to time, oriented to situation, CN II-XII grossly intact. ABSENT: motor sensory deficit Psychiatric exam: PRESENT: appropriate affect, normal mood. ABSENT: homicidal ideation, suicidal ideation Skin exam: PRESENT: dry, warm. ABSENT: cyanosis, rash Results Laboratory Results: 12/03/19 06:03 12/03/19 06:03 11/28/19 17:30 Blood Blood Culture - Final NO GROWTH IN 5 DAYS 09/06/20 17:03 Blood Blood Culture - Final NO GROWTH IN 5 DAYS Impressions: Chest X-Ray 11/28/19 00:00 IMPRESSION: NO SIGNIFICANT RADIOGRAPHIC FINDING IN THE CHEST. Extremity Ultrasound 11/28/19 14:26 IMPRESSION: Soft tissue edema at the right inner thigh. 0.7 x 0.3 x 1.4 cm fluid collection at the superficial soft tissues extending to the skin surface, superimposed acute infection/ abscess cannot be excluded. Assessment and Plan - Diagnosis (1) Abscess of right thigh Is this a current diagnosis for this admission?: Yes (2) Cellulitis of right thigh Is this a current diagnosis for this admission?: Yes (3) Chronic back pain Qualifiers: Back pain location: back pain in unspecified location Back pain laterality: bilateral Qualified Code(s): M54.9 - Dorsalgia, unspecified; G89.29 - Other chronic pain Is this a current diagnosis for this admission?: Yes (4) Leukocytosis Qualifiers: Leukocytosis type: unspecified Qualified Code(s): D72.829 - Elevated white blood cell count, unspecified Is this a current diagnosis for this admission?: Yes (5) Tobacco dependence Is this a current diagnosis for this admission?: Yes Plan: Patient smokes 2 to 3 packs daily. Smoking cessation and nicotine replacement therapies provided. He is interested in outpatient smoking cessation management - Plan Summary Summary: Patient seen by surgery today. They suggest to continue with the wet-to-dry dressing change twice daily and oral antibiotics of course. Patient is growing MRSA and Enterobacter currently in his wound. He is currently on vancomycin as well as ceftriaxone. Looking at the antibiotic profile he probably can be discharged home on Bactrim. However patient has received about 5 days worth of antibiotics. He is actually doing his own dressing because he says that it is too painful when he is done by the nursing staff. He will need home health at discharge for dressing changes. I will continue the IV antibiotics for now is in hospital. I think he can be discharged home on Bactrim as this has good sensitivity to both organisms. He is also requiring Percocet every 6 hours and I think this can be tapered down plan for discharge by Friday. He is receiving Dilaudid as needed and still complains of pain. Consider discharging home on minimal narcotics - Time Time Spent with patient: 15-24 minutes Anticipated Discharge Disposition: Home with Home Health Anticipated Discharge Timeframe: within 48 hours
[2019-12-04] MEDS: CEFTRIAXONE 2 GM/D5W RTU 2 GM/50 ML RTUPB IV SCH (17:30)
[2019-12-04] MEDS: LIDOCAINE 5% (700 MG) TRANSDERMAL ADH..PATCH TP SCH (22:16)
[2019-12-05] MEDS: KETOROLAC TROMETHAMINE INJ/PF 30 MG/1 ML SDV IV PRN ×2 (00:40→15:06)
[2019-12-05 04:40] LABS: ABSOLUTE BASOPHILS # (AUTO) 0.1 10^3/uL (0.0-0.2); ABSOLUTE EOSINOPHILS # (AUTO) 0.4 10^3/uL (0.0-0.6); ABSOLUTE LYMPHOCYTES (AUTO) 2.2 10^3/uL (0.5-4.7); ABSOLUTE MONOCYTES (AUTO) 0.9 10^3/uL (0.1-1.4); ABSOLUTE NEUT (AUTO) 5.4 10^3/uL (1.7-8.2); BASOPHILS % (AUTO) 0.9 % (0-2); EOSINOPHILS % (AUTO) 4.4 % (0-6); HEMATOCRIT 36.7 % (37.9-51.0); HEMOGLOBIN 12.6 g/dL (13.5-17.0); LYMPHOCYTES % (AUTO) 24.4 % (13-45); MEAN CORPUSCULAR HEMOGLOBIN 30.3 pg (27.0-33.4); MEAN CORPUSCULAR HGB CONC 34.4 g/dL (32.0-36.0); MEAN CORPUSCULAR VOLUME 88 fl (80-97); MONOCYTES % (AUTO) 9.8 % (3-13); PLATELET COUNT 377 10^3/uL (150-450); RED BLOOD COUNT 4.17 10^6/uL (4.35-5.55); SEGMENTED NEUTROPHILS % (AUTO) 60.5 % (42-78); TOTAL CELLS COUNTED % (AUTO) 100 %; WHITE BLOOD COUNT 8.9 10^3/uL (4.0-10.5)
[2019-12-05] MEDS: VANCOMYCIN HCL 1,500 MG in DEXTROSE 5%-WATER 250 ML IV SCH ×3 (05:50→22:45)
[2019-12-05] MEDS: PANTOPRAZOLE SODIUM 40 MG TABLET.DR PO SCH (05:51)
[2019-12-05] MEDS: OXYCODONE-ACETAMINOPHEN 5-325 MG TABLET PO SCH ×3 (05:51→17:58)
[2019-12-05] MEDS: HYDROMORPHONE HCL INJ/PF 2 MG/ML AMPULE IV PRN ×3 (07:31→20:07)
[2019-12-05] MEDS: NICOTINE 21 MG/24 HR PATCH.TD24 TD SCH (10:41)
[2019-12-05] MEDS: DOCUSATE SODIUM 100 MG CAPSULE PO SCH (10:41)
--- NOTE | 2019-12-05 11:45 | PDOC PROGRESS REPORT ---
Subjective Progress Note for:: 12/05/19 Subjective:: 44 year old male with a past medical history significant for HLD, GERD, chronic pain who presented to the ED w/ complaint of 5 days of progressively worsening erythema and edema to medial left thigh after "popping sweat pimples." Evaluation in the emergency department reveals mildly elevated heart rate (103) mild hypertension (149/83), leukocytosis (15.4), unremarkable chemistry including lactic acid. Soft tissue ultrasound revealed diffuse soft tissue edema with a 0.7 x 0.3 x 1.4 cm fluid collection. He is provided IV vancomycin and Zosyn. Surgical consultation requested. He is referred to the hospitalist service for further evaluation and management of the above-stated complaints findings. 12/05/2019-no acute events in the last 24 hours. Patient is receiving IV vancomycin, free oxygen at this time. Receiving wet-to-dry dressing changes on daily basis. Blood cultures growing MRSA. Plan is to continue IV antibiotic therapy and IV pain medications at this time. Reason For Visit: LLE CELLULITIS Physical Exam Vital Signs: Temp Pulse Resp BP Pulse Ox 98.4 F 72 18 135/93 H 98 12/05/19 07:11 12/05/19 07:11 12/05/19 07:11 12/05/19 07:11 12/05/19 07:11 Intake & Output 12/04/19 12/05/19 12/06/19 06:59 06:59 06:59 Intake Total 2190 2670 250 Output Total 725 300 Balance 1465 2370 250 Weight 93.8 kg 94.2 kg General appearance: PRESENT: no acute distress, well-developed Head exam: PRESENT: atraumatic Eye exam: PRESENT: PERRLA Mouth exam: PRESENT: moist, tongue midline Teeth exam: PRESENT: poor dentation Neck exam: ABSENT: carotid bruit, JVD, lymphadenopathy, thyromegaly Respiratory exam: PRESENT: clear to auscultation elisabeth. ABSENT: rales, rhonchi, wheezes Cardiovascular exam: PRESENT: RRR. ABSENT: diastolic murmur, rubs, systolic murmur GI/Abdominal exam: PRESENT: normal bowel sounds, soft. ABSENT: distended, guarding, mass, organolmegaly, rebound, tenderness Rectal exam: PRESENT: deferred Extremities exam: PRESENT: full ROM, other - Dressing is present on the right thigh.. ABSENT: calf tenderness, clubbing, pedal edema Neurological exam: PRESENT: alert, awake, oriented to person, oriented to place, oriented to time, oriented to situation, CN II-XII grossly intact. ABSENT: motor sensory deficit Results Laboratory Results: 12/05/19 04:09 12/03/19 06:03 12/05/19 04:09 WBC 8.9 RBC 4.17 L Hgb 12.6 L Hct 36.7 L MCV 88 MCH 30.3 MCHC 34.4 RDW 13.0 Plt Count 377 Seg Neutrophils % 60.5 Impressions: Chest X-Ray 11/28/19 00:00 IMPRESSION: NO SIGNIFICANT RADIOGRAPHIC FINDING IN THE CHEST. Extremity Ultrasound 11/28/19 14:26 IMPRESSION: Soft tissue edema at the right inner thigh. 0.7 x 0.3 x 1.4 cm fluid collection at the superficial soft tissues extending to the skin surface, superimposed acute infection/ abscess cannot be excluded. Assessment and Plan - Diagnosis (1) Abscess of right thigh Is this a current diagnosis for this admission?: Yes Plan: S/p I and D by Surgery [id number] male admitted with abscess in the right thigh status post incision and drainage was done. Presently on IV vancomycin, IV Rocephin. Wound cultures are showing MRSA blood cultures are negative. Plan is to continue IV antibiotic therapy at this time. (2) Chronic back pain Qualifiers: Back pain location: back pain in unspecified location Back pain laterality: bilateral Qualified Code(s): M54.9 - Dorsalgia, unspecified; G89.29 - Other chronic pain Is this a current diagnosis for this admission?: No Plan: Currently on as needed Dilaudid and Toradol. Continue Percocet scheduled Lidoderm patch. (3) Leukocytosis Qualifiers: Leukocytosis type: unspecified Qualified Code(s): D72.829 - Elevated white blood cell count, unspecified Is this a current diagnosis for this admission?: Yes Plan: - secondary to Cellulitis - WBC 15.4-> 12.7-> 10.8 Cultures and antibiotics as above. Continue to monitor. 12/05/2019-WBC count today is 8900. Leukocytosis is resolved. (4) Tobacco dependence Is this a current diagnosis for this admission?: No Plan: Patient smokes 2 to 3 packs daily. Smoking cessation and nicotine replacement therapies provided. He is interested in outpatient smoking cessation management - Plan Summary Summary: Patient seen by surgery today. They suggest to continue with the wet-to-dry dressing change twice daily and oral antibiotics of course. Patient is growing MRSA and Enterobacter currently in his wound. He is currently on vancomycin as well as ceftriaxone. Looking at the antibiotic profile he probably can be discharged home on Bactrim. However patient has received about 5 days worth of antibiotics. He is actually doing his own dressing because he says that it is too painful when he is done by the nursing staff. He will need home health at discharge for dressing changes. I will continue the IV antibiotics for now is in hospital. I think he can be discharged home on Bactrim as this has good sensitivity to both organisms. He is also requiring Percocet every 6 hours and I think this can be tapered down plan for discharge by Friday. He is receiving Dilaudid as needed and still complains of pain. Consider discharging home on minimal narcotics - Time Anticipated Discharge Disposition: Home, Self Care Anticipated Discharge Timeframe: within 48 hours
[2019-12-05 13:57] LABS: VANCOMYCIN,TROUGH 17.2 ug/mL (5.0-20.0)
[2019-12-05] MEDS: CEFTRIAXONE 2 GM/D5W RTU 2 GM/50 ML RTUPB IV SCH (17:59)
[2019-12-05] MEDS: LIDOCAINE 5% (700 MG) TRANSDERMAL ADH..PATCH TP SCH (22:45)
[2019-12-06] MEDS: OXYCODONE-ACETAMINOPHEN 5-325 MG TABLET PO SCH ×4 (00:10→18:12)
[2019-12-06] MEDS: PANTOPRAZOLE SODIUM 40 MG TABLET.DR PO SCH (05:43)
[2019-12-06] MEDS: VANCOMYCIN HCL 1,500 MG in DEXTROSE 5%-WATER 250 ML IV SCH ×2 (05:43→14:01)
[2019-12-06 07:05] LABS: ABSOLUTE BASOPHILS # (AUTO) 0.1 10^3/uL (0.0-0.2); ABSOLUTE EOSINOPHILS # (AUTO) 0.4 10^3/uL (0.0-0.6); ABSOLUTE LYMPHOCYTES (AUTO) 1.8 10^3/uL (0.5-4.7); ABSOLUTE MONOCYTES (AUTO) 0.8 10^3/uL (0.1-1.4); ABSOLUTE NEUT (AUTO) 5.4 10^3/uL (1.7-8.2); BASOPHILS % (AUTO) 0.8 % (0-2); EOSINOPHILS % (AUTO) 4.5 % (0-6); HEMATOCRIT 38.2 % (37.9-51.0); HEMOGLOBIN 13.1 g/dL (13.5-17.0); LYMPHOCYTES % (AUTO) 20.9 % (13-45); MEAN CORPUSCULAR HEMOGLOBIN 30.3 pg (27.0-33.4); MEAN CORPUSCULAR HGB CONC 34.4 g/dL (32.0-36.0); MEAN CORPUSCULAR VOLUME 88 fl (80-97); MONOCYTES % (AUTO) 9.8 % (3-13); PLATELET COUNT 385 10^3/uL (150-450); RED BLOOD COUNT 4.33 10^6/uL (4.35-5.55); RED CELL DISTRIBUTION WIDTH 13.2 % (11.5-14.0); TOTAL CELLS COUNTED % (AUTO) 100 %; WHITE BLOOD COUNT 8.4 10^3/uL (4.0-10.5)
[2019-12-06 07:22] LABS: ALBUMIN 3.4 g/dL (3.5-5.0); ALKALINE PHOSPHATASE 76 U/L (38-126); ANION GAP 5 (5-19); ASPARTATE AMINO TRANSFERASE 42 U/L (17-59); BILIRUBIN,DIRECT 0.2 mg/dL (0.0-0.4); BILIRUBIN,TOTAL 0.3 mg/dL (0.2-1.3); BLOOD UREA NITROGEN 15 mg/dL (7-20); CALCIUM 9.1 mg/dL (8.4-10.2); CARBON DIOXIDE 27 mmol/L (22-30); CHLORIDE 104 mmol/L (98-107); GLUCOSE 99 mg/dL (75-110); POTASSIUM 4.6 mmol/L (3.6-5.0); TOTAL PROTEIN 6.1 g/dL (6.3-8.2)
[2019-12-06] MEDS: HYDROMORPHONE HCL INJ/PF 2 MG/ML AMPULE IV PRN ×2 (08:38→19:33)
--- NOTE | 2019-12-06 09:37 | PDOC PROGRESS REPORT ---
Subjective Progress Note for:: 12/06/19 Subjective:: 44 year old male with a past medical history significant for HLD, GERD, chronic pain who presented to the ED w/ complaint of 5 days of progressively worsening erythema and edema to medial left thigh after "popping sweat pimples." Evaluation in the emergency department reveals mildly elevated heart rate (103) mild hypertension (149/83), leukocytosis (15.4), unremarkable chemistry including lactic acid. Soft tissue ultrasound revealed diffuse soft tissue edema with a 0.7 x 0.3 x 1.4 cm fluid collection. He is provided IV vancomycin and Zosyn. Surgical consultation requested. He is referred to the hospitalist service for further evaluation and management of the above-stated complaints findings. 12/05/2019-no acute events in the last 24 hours. Patient is receiving IV vancomycin, free oxygen at this time. Receiving wet-to-dry dressing changes on daily basis. Blood cultures growing MRSA. Plan is to continue IV antibiotic therapy and IV pain medications at this time. 12/06/19-no acute events in the last 24 hours. Afebrile. Wound on the right upper legs looks clean. Presently on vancomycin, ceftriaxone. Plan is to continue the antibiotics at the time. Reason For Visit: LLE CELLULITIS Physical Exam Vital Signs: Temp Pulse Resp BP Pulse Ox 97.7 F 79 17 125/68 100 12/06/19 08:04 12/06/19 08:04 12/06/19 08:04 12/06/19 08:04 12/06/19 08:04 Intake & Output 12/05/19 12/06/19 12/07/19 06:59 06:59 06:59 Intake Total 2670 3025 250 Output Total 300 700 Balance 2370 2325 250 Weight 94.2 kg 94.2 kg General appearance: PRESENT: no acute distress, cooperative, well-developed Head exam: PRESENT: atraumatic Eye exam: PRESENT: PERRLA Mouth exam: PRESENT: moist, tongue midline Teeth exam: PRESENT: poor dentation Neck exam: ABSENT: carotid bruit, JVD, lymphadenopathy, thyromegaly Respiratory exam: PRESENT: decreased breath sounds Cardiovascular exam: PRESENT: RRR. ABSENT: diastolic murmur, rubs, systolic murmur GI/Abdominal exam: PRESENT: normal bowel sounds, soft. ABSENT: distended, guarding, mass, organolmegaly, rebound, tenderness Rectal exam: PRESENT: deferred Extremities exam: PRESENT: other - Right upper thigh wound looks clean. Neurological exam: PRESENT: alert, awake, oriented to person, oriented to place, oriented to time, oriented to situation, CN II-XII grossly intact. ABSENT: motor sensory deficit Psychiatric exam: PRESENT: appropriate affect, normal mood. ABSENT: homicidal ideation, suicidal ideation Results Laboratory Results: 12/06/19 06:44 12/06/19 06:44 12/06/19 12/06/19 06:44 06:44 WBC 8.4 RBC 4.33 L Hgb 13.1 L Hct 38.2 MCV 88 MCH 30.3 MCHC 34.4 RDW 13.2 Plt Count 385 Seg Neutrophils % 64.0 Sodium 136.0 L Potassium 4.6 Chloride 104 Carbon Dioxide 27 Anion Gap 5 BUN 15 Creatinine 0.72 Est GFR ( Amer) > 60 Glucose 99 Calcium 9.1 Magnesium 2.4 H Total Bilirubin 0.3 AST 42 Alkaline Phosphatase 76 Total Protein 6.1 L Albumin 3.4 L Impressions: Chest X-Ray 11/28/19 00:00 IMPRESSION: NO SIGNIFICANT RADIOGRAPHIC FINDING IN THE CHEST. Extremity Ultrasound 11/28/19 14:26 IMPRESSION: Soft tissue edema at the right inner thigh. 0.7 x 0.3 x 1.4 cm fluid collection at the superficial soft tissues extending to the skin surface, superimposed acute infection/ abscess cannot be excluded. Assessment and Plan - Diagnosis (1) Abscess of right thigh Is this a current diagnosis for this admission?: Yes Plan: S/p I and D by Surgery 12/05/[id number]-old male admitted with abscess in the right thigh status post incision and drainage was done. Presently on IV vancomycin, IV Rocephin. Wound cultures are showing MRSA blood cultures are negative. Plan is to continue IV antibiotic therapy at this time. 12/06/19-patient able to change his dressings by himself. Wounds on the wrapped upper thigh looks clean. Plan is to continue IV ceftriaxone, IV vancomycin at this time. (2) Chronic back pain Qualifiers: Back pain location: back pain in unspecified location Back pain laterality: bilateral Qualified Code(s): M54.9 - Dorsalgia, unspecified; G89.29 - Other chronic pain Is this a current diagnosis for this admission?: No Plan: Currently on as needed Dilaudid and Toradol. Continue Percocet scheduled Lidoderm patch. (3) Leukocytosis Qualifiers: Leukocytosis type: unspecified Qualified Code(s): D72.829 - Elevated white blood cell count, unspecified Is this a current diagnosis for this admission?: Yes Plan: - secondary to Cellulitis - WBC 15.4-> 12.7-> 10.8 Cultures and antibiotics as above. Continue to monitor. 12/05/2019-WBC count today is 8900. Leukocytosis is resolved. (4) Tobacco dependence Is this a current diagnosis for this admission?: No Plan: Patient smokes 2 to 3 packs daily. Smoking cessation and nicotine replacement therapies provided. He is interested in outpatient smoking cessation management - Plan Summary Summary: Patient seen by surgery today. They suggest to continue with the wet-to-dry dressing change twice daily and oral antibiotics of course. Patient is growing MRSA and Enterobacter currently in his wound. He is currently on vancomycin as well as ceftriaxone. Looking at the antibiotic profile he probably can be discharged home on Bactrim. However patient has received about 5 days worth of antibiotics. He is actually doing his own dressing because he says that it is too painful when he is done by the nursing staff. He will need home health at discharge for dressing changes. I will continue the IV antibiotics for now is in hospital. I think he can be discharged home on Bactrim as this has good sensitivity to both organisms. He is also requiring Percocet every 6 hours and I think this can be tapered down plan for discharge by Friday. He is receiving Dilaudid as needed and still complains of pain. Consider discharging home on minimal narcotics - Time Anticipated Discharge Disposition: Home, Self Care Anticipated Discharge Timeframe: within 48 hours
[2019-12-06] MEDS: NICOTINE 21 MG/24 HR PATCH.TD24 TD SCH (10:52)
[2019-12-06] MEDS: KETOROLAC TROMETHAMINE INJ/PF 30 MG/1 ML SDV IV PRN ×2 (10:56→21:07)
[2019-12-06] MEDS: DOCUSATE SODIUM 100 MG CAPSULE PO SCH (10:56)
[2019-12-06] MEDS: CEFTRIAXONE 2 GM/D5W RTU 2 GM/50 ML RTUPB IV SCH (18:12)
[2019-12-06] MEDS: LIDOCAINE 5% (700 MG) TRANSDERMAL ADH..PATCH TP SCH (21:07)
[2019-12-07] MEDS: OXYCODONE-ACETAMINOPHEN 5-325 MG TABLET PO SCH ×2 (00:12→05:35)
[2019-12-07] MEDS: PANTOPRAZOLE SODIUM 40 MG TABLET.DR PO SCH (05:35)
[2019-12-07] MEDS: HYDROMORPHONE HCL INJ/PF 2 MG/ML AMPULE IV PRN (08:08)
[2019-12-07] MEDS: DOCUSATE SODIUM 100 MG CAPSULE PO SCH (09:07)
[2019-12-07] MEDS: NICOTINE 21 MG/24 HR PATCH.TD24 TD SCH (09:08)
[2019-12-07] MEDS ORDERED: OXYCODONE-ACETAMINOPHEN 5-325 MG TABLET PO PRN (09:42)
[2019-12-07] MEDS ORDERED: IBUPROFEN 800 MG TABLET PO PRN (09:42)
[2019-12-07] MEDS: KETOROLAC TROMETHAMINE INJ/PF 30 MG/1 ML SDV IV PRN (10:40)
[2019-12-07 11:03] VITALS: BP 129/78
[2019-12-07] MEDS ORDERED: VANCOMYCIN HCL 1,500 MG in DEXTROSE 5%-WATER 250 ML IV SCH (12:00)
[2019-12-07] MEDS ORDERED: CLINDAMYCIN HCL 150 MG CAPSULE PO SCH (14:00)
--- NOTE | 2019-12-07 14:06 | PDOC DISCHARGE SUMMARY ---
Impression - Admit/DC Date/PCP Admission Date/Primary Care Provider: 12/02/19 15:16 ATIF MARSHALL PA-C Discharge Date: 12/07/19 - Assessment Summary: Patient seen by surgery today. They suggest to continue with the wet-to-dry dressing change twice daily and oral antibiotics of course. Patient is growing MRSA and Enterobacter currently in his wound. He is currently on vancomycin as well as ceftriaxone. Looking at the antibiotic profile he probably can be discharged home on Bactrim. However patient has received about 5 days worth of antibiotics. He is actually doing his own dressing because he says that it is too painful when he is done by the nursing staff. He will need home health at discharge for dressing changes. I will continue the IV antibiotics for now is in hospital. I think he can be discharged home on Bactrim as this has good sensitivity to both organisms. He is also requiring Percocet every 6 hours and I think this can be tapered down plan for discharge by Friday. He is receiving Dilaudid as needed and still complains of pain. Consider discharging home on minimal narcotics - Additional Information Resuscitation Status: Full Code Discharge Diet: As Tolerated Discharge Activity: Activity As Tolerated Referrals: [facility] [Provider Group] - 12/17/19 8:15 am () Prescriptions: Clindamycin HCl [Cleocin 150 mg Capsule] 450 mg PO Q8 #27 capsule Ibuprofen [Motrin 800 mg Tablet] 800 mg PO Q8HP PRN #27 tablet PRN Reason: Nicotine [Nicoderm 21 mg/24 Hr Transderm Patch] 1 each TD DAILY #30 patch.td24 Oxycodone HCl/Acetaminophen [Percocet 5-325 mg Tablet] 1 tab PO Q6HP PRN #12 tablet PRN Reason: Moderate to severe pain Home Medications: Omeprazole Magnesium [Prilosec Otc] 20 mg PO Q6AM 11/29/19 Acetaminophen [Tylenol 325 mg Tablet] 650 mg PO Q6HP PRN #0 12/07/19 Clindamycin HCl [Cleocin 150 mg Capsule] 450 mg PO Q8 #27 capsule 12/07/19 Ibuprofen [Motrin 800 mg Tablet] 800 mg PO Q8HP PRN #27 tablet 12/07/19 Nicotine [Nicoderm 21 mg/24 Hr Transderm Patch] 1 each TD DAILY #30 patch.td24 12/07/19 Oxycodone HCl/Acetaminophen [Percocet 5-325 mg Tablet] 1 tab PO Q6HP PRN #12 tablet 12/07/19 History of Present Illiness History of Present Illness: Per Admitting Physician: "ADOLFO HENRY JR is a 44 year old male with a past medical history significant for HLD, GERD, chronic pain who presented to the ED w/ complaint of 5 days of progressively worsening erythema and edema to medial left thigh after "popping sweat pimples." Evaluation in the emergency department reveals mildly elevated heart rate (103) mild hypertension (149/83), leukocytosis (15.4), unremarkable chemistry including lactic acid. Soft tissue ultrasound revealed diffuse soft tissue edema with a 0.7 x 0.3 x 1.4 cm fluid collection. He is provided IV vancomycin and Zosyn. Surgical consultation requested. He is referred to the hospitalist service for further evaluation and management of the above-stated complaints findings." Hospital Course Hospital Course: Per previous physician: "44 year old male with a past medical history significant for HLD, GERD, chronic pain who presented to the ED w/ complaint of 5 days of progressively worsening erythema and edema to medial left thigh after "popping sweat pimples." Evaluation in the emergency department reveals mildly elevated heart rate (103) mild hypertension (149/83), leukocytosis (15.4), unremarkable chemistry including lactic acid. Soft tissue ultrasound revealed diffuse soft tissue edema with a 0.7 x 0.3 x 1.4 cm fluid collection. He is provided IV vancomycin and Zosyn. Surgical consultation requested. He is referred to the hospitalist service for further evaluation and management of the above-stated complaints findings. 12/05/2019-no acute events in the last 24 hours. Patient is receiving IV vancomycin, free oxygen at this time. Receiving wet-to-dry dressing changes on daily basis. Blood cultures growing MRSA. Plan is to continue IV antibiotic therapy and IV pain medications at this time. 12/06/19-no acute events in the last 24 hours. Afebrile. Wound on the right upper legs looks clean. Presently on vancomycin, ceftriaxone. Plan is to continue the antibiotics at the time." Patient stable for discharge. Discharged on clindamycin 450 mg every 8 hours for 3 additional days to complete total 10 days from latest I&D. Prescribed 12 tablets of Percocet with no refills. Tylenol and Motrin can be continued thereafter. Patient has significant bipolar disorder and I strongly recommended he follow-up with a psychiatrist and stop smoking cigarettes and drinking excessive amounts of caffeine in the form of energy drinks. Patient in full agreement with the plan and request to be discharged home at this time. He understands he must follow-up with his general surgeon in 1 to 2 weeks for a wound check and he states his [employer] family member will be managing his wound care at home. Physical Exam Vital Signs: Temp Pulse Resp BP Pulse Ox 97.9 F 71 17 129/78 H 97 12/07/19 12:00 12/07/19 12:00 12/07/19 12:00 12/07/19 12:00 12/07/19 12:00 Intake & Output 12/06/19 12/07/19 12/08/19 06:59 06:59 06:59 Intake Total 3025 1756 510 Output Total 700 700 400 Balance 2325 1056 110 Weight 94.2 kg 94.2 kg General appearance: PRESENT: no acute distress, well-developed, well-nourished Head exam: PRESENT: atraumatic, normocephalic Eye exam: PRESENT: conjunctiva pink. ABSENT: scleral icterus Mouth exam: PRESENT: moist Respiratory exam: PRESENT: clear to auscultation elisabeth. ABSENT: rales, rhonchi, wheezes Cardiovascular exam: PRESENT: RRR. ABSENT: diastolic murmur, rubs, systolic murmur GI/Abdominal exam: PRESENT: normal bowel sounds, soft. ABSENT: distended, guarding, mass, organolmegaly, rebound, tenderness Extremities exam: PRESENT: other - Right thigh wounds clean and healing with minimal drainage, drains in place Musculoskeletal exam: PRESENT: ambulatory Neurological exam: PRESENT: alert, awake, oriented to person, oriented to place, oriented to time, oriented to situation Psychiatric exam: PRESENT: appropriate affect, normal mood Skin exam: PRESENT: dry, warm Results Laboratory Results: WBC 8.4 10^3/uL (4.0-10.5) 12/06/19 06:44 RBC 4.33 10^6/uL (4.35-5.55) L 12/06/19 06:44 Hgb 13.1 g/dL (13.5-17.0) L 12/06/19 06:44 Hct 38.2 % (37.9-51.0) 12/06/19 06:44 MCV 88 fl (80-97) 12/06/19 06:44 MCH 30.3 pg (27.0-33.4) 12/06/19 06:44 MCHC 34.4 g/dL (32.0-36.0) 12/06/19 06:44 RDW 13.2 % (11.5-14.0) 12/06/19 06:44 Plt Count 385 10^3/uL (150-450) 12/06/19 06:44 Lymph % (Auto) 20.9 % (13-45) 12/06/19 06:44 [place] % (Auto) 9.8 % (3-13) 12/06/19 06:44 Eos % (Auto) 4.5 % (0-6) 12/06/19 06:44 Baso % (Auto) 0.8 % (0-2) 12/06/19 06:44 Absolute Neuts (auto) 5.4 10^3/uL (1.7-8.2) 12/06/19 06:44 Absolute Lymphs (auto) 1.8 10^3/uL (0.5-4.7) 12/06/19 06:44 Absolute Monos (auto) 0.8 10^3/uL (0.1-1.4) 12/06/19 06:44 Absolute Eos (auto) 0.4 10^3/uL (0.0-0.6) 12/06/19 06:44 Absolute Basos (auto) 0.1 10^3/uL (0.0-0.2) 12/06/19 06:44 Seg Neutrophils % 64.0 % (42-78) 12/06/19 06:44 Sodium 136.0 mmol/L (137-145) L 12/06/19 06:44 Potassium 4.6 mmol/L (3.6-5.0) 12/06/19 06:44 Chloride 104 mmol/L (98-107) 12/06/19 06:44 Carbon Dioxide 27 mmol/L (22-30) 12/06/19 06:44 Anion Gap 5 (5-19) 12/06/19 06:44 BUN 15 mg/dL (7-20) 12/06/19 06:44 Creatinine 0.72 mg/dL (0.52-1.25) 12/06/19 06:44 Est GFR ( Amer) > 60 (>60) 12/06/19 06:44 Est GFR (MDRD) Non-Af > 60 (>60) 12/06/19 06:44 Glucose 99 mg/dL (75-110) 12/06/19 06:44 Hemoglobin A1c % 5.3 % (4.7-6.0) 11/30/19 11:15 Lactic Acid 0.9 mmol/L (0.7-2.1) 11/28/19 17:03 Calcium 9.1 mg/dL (8.4-10.2) 12/06/19 06:44 Magnesium 2.4 mg/dL (1.6-2.3) H 12/06/19 06:44 Total Bilirubin 0.3 mg/dL (0.2-1.3) 12/06/19 06:44 Direct Bilirubin 0.2 mg/dL (0.0-0.4) 12/06/19 06:44 Neonat Total Bilirubin Not Reportable 12/06/19 06:44 Neonat Direct Bilirubin Not Reportable 12/06/19 06:44 Neonat Indirect Bili Not Reportable 12/06/19 06:44 AST 42 U/L (17-59) 12/06/19 06:44 ALT 49 U/L (<50) 12/06/19 06:44 Alkaline Phosphatase 76 U/L (38-126) 12/06/19 06:44 Total Protein 6.1 g/dL (6.3-8.2) L 12/06/19 06:44 Albumin 3.4 g/dL (3.5-5.0) L 12/06/19 06:44 Time Trough Drawn 1305 12/05/19 13:05 Vancomycin Trough 17.2 ug/mL (5.0-20.0) 12/05/19 13:05 SARS-CoV-2 (PCR) NEGATIVE (NEGATIVE) 11/28/19 18:30 Impressions: Chest X-Ray 11/28/19 00:00 IMPRESSION: NO SIGNIFICANT RADIOGRAPHIC FINDING IN THE CHEST. Extremity Ultrasound 11/28/19 14:26 IMPRESSION: Soft tissue edema at the right inner thigh. 0.7 x 0.3 x 1.4 cm fluid collection at the superficial soft tissues extending to the skin surface, superimposed acute infection/ abscess cannot be excluded. Plan Plan of Treatment: Follow-up with PCP Follow-up with general surgery Follow-up with psychiatry Complete antibiotic course Stop smoking cigarettes Stop using energy drinks and caffeine Time Spent: Greater than 30 Minutes Stroke Is this a Stroke Patient?: No Acute Heart Failure Is this a Heart Failure Patient?: No
== END 2019-12-07 14:50 | disposition home or self-care (01) | DRG 572 ==
LOC: ER 14:14 → INTOOBSV 17:21 → EH 17:21 → 4N 22:04 → OBSVTOIN 12-02 15:16
PROVIDERS: ADMIT Hospitalist; ATTEND Internal Medicine
PROC: 0J9L00Z Drainage of Right Upper Leg Subcutaneous Tissue and Fascia with Drainage Device, Open Approach (ICD-10-PCS; 2019-11-28)
PROC: 0JBL0ZZ Excision of Right Upper Leg Subcutaneous Tissue and Fascia, Open Approach (ICD-10-PCS; principal; 2019-11-28 20:00)
PROC: 0J9L00Z Drainage of Right Upper Leg Subcutaneous Tissue and Fascia with Drainage Device, Open Approach (ICD-10-PCS; 2019-12-01)
DX: L02.415 Cutaneous abscess of right lower limb (principal); L03.115 Cellulitis of right lower limb; L02.416 Cutaneous abscess of left lower limb; B95.62 Methicillin resistant Staphylococcus aureus infection as the cause of diseases classified elsewhere; F41.9 Anxiety disorder, unspecified; F31.9 Bipolar disorder, unspecified; K21.9 Gastro-esophageal reflux disease without esophagitis; F12.10 Cannabis abuse, uncomplicated; B96.89 Other specified bacterial agents as the cause of diseases classified elsewhere; M19.90 Unspecified osteoarthritis, unspecified site; F11.10 Opioid abuse, uncomplicated; F60.3 Borderline personality disorder; E78.5 Hyperlipidemia, unspecified; I10 Essential (primary) hypertension; F17.210 Nicotine dependence, cigarettes, uncomplicated; D72.829 Elevated white blood cell count, unspecified; G89.29 Other chronic pain; M54.9 Dorsalgia, unspecified
CPT/HCPCS: 36415; 400; 71045; 76882; 80048; 80053; 80202; 83036; 83605; 83735; 85025; 85027; 87040; 87070; 87075; 87077; 87186; 87205; 87635; 88305; 93005; 93010; 94799; 96365; 96366; 96368; 96375; 99140; 99285; C9803; G0378; J0131; J0330; J0696; J1170; J1630; J1885; J2250; J2270; J2405; J2543; J2704; J2765; J3010; J3370; J3490; J7030; J7050; J7060; S0028